=== PATIENT | female | born 1960 | race Caucasian/White ===

== ENCOUNTER 2023-05-27 21:13 | Inpatient (IN) | payer OTHER ==
[~2023-05-27] VITALS: Ht 157.5 cm; Wt 84.3 kg
[~2023-05-27 21:13] MED LIST: ATOR40TA PO; Aspir 8181 MG PO; CIPR500 PO; FURO20 PO; JARDIANCE25 MG PO; METF500 PO; METO25 PO; METR500 PO; ONDA4 PO; Percocet 5-3251 EACH PO; WARF5 PO
[2023-05-27] MEDS ORDERED: HUMULIN 70100 UNIT/4 (21:51)
[2023-05-27 21:52] LABS: BASOPHILS ABSOLUTE AUTO 0.04 K/mm3 (0.00-0.23); BASOPHILS PERCENT AUTO 0 % (0-2); EOSINOPHILS ABSOLUTE AUTO 0.31 K/mm3 (0.00-0.68); EOSINOPHILS PERCENT AUTO 3 % (0-6); Hematocrit 33.2 % (33.0-51.0); Hemoglobin 10.2 g/dL (11.5-16.0); IMMATURE GRAN ABSOLUTE AUTO 0.03 K/mm3 (0.00-0.10); IMMATURE GRAN PERCENT AUTO 0 % (0-1); LYMPHOCYTES ABSOLUTE AUTO 1.65 K/mm3 (0.84-5.20); LYMPHOCYTES PERCENT AUTO 17 % (21-46); MONOCYTES ABSOLUTE AUTO 0.63 K/mm3 (0.16-1.47); MONOCYTES PERCENT AUTO 6 % (4-13); Mean Corpuscular HGB 25.8 pg (26.0-34.0); Mean Corpuscular HGB Conc 30.7 g/dL (31.5-36.5); Mean Corpuscular Volume 84 fL (80-100); Mean Platelet Volume 8.9 fL (9.1-12.4); NEUTROPHILS ABSOLUTE AUTO 7.31 K/mm3 (1.96-9.15); NEUTROPHILS PERCENT AUTO 73 % (41-73); Platelet Count 302 K/mm3 (150-400); RDW Coefficient Variation 16.5 % (11.7-14.2); RDW Standard Deviation 50.4 fL (35.1-46.3); Red Blood Cell Count 3.96 M/mm3 (3.80-5.20); White Blood Cell Count 9.97 K/mm3 (4.00-11.30)
[2023-05-27 23:00] LABS: Albumin/Globulin Ratio 0.7 (0.8-1.8); Bilirubin, Total 0.3 mg/dL (0.1-1.0); Calcium, Blood 8.9 mg/dL (8.5-10.1); Creatinine, Blood 0.65 mg/dL (0.40-1.00); Globulin, Blood 4.1 g/dL (2.2-4.0); Potassium, Blood 2.6 mmol/L (3.5-5.5); Total Protein, Blood 7.1 g/dL (6.4-8.2)
[2023-05-28] VITALS (17 sets, daily range): BP systolic 100–130; BP diastolic 46–79
[2023-05-28 03:53] LABS: BASOPHILS ABSOLUTE AUTO 0.02 K/mm3 (0.00-0.23); BASOPHILS PERCENT AUTO 0 % (0-2); EOSINOPHILS ABSOLUTE AUTO 0.44 K/mm3 (0.00-0.68); EOSINOPHILS PERCENT AUTO 4 % (0-6); Hematocrit 29.6 % (33.0-51.0); Hemoglobin 9.2 g/dL (11.5-16.0); IMMATURE GRAN ABSOLUTE AUTO 0.02 K/mm3 (0.00-0.10); IMMATURE GRAN PERCENT AUTO 0 % (0-1); LYMPHOCYTES ABSOLUTE AUTO 1.69 K/mm3 (0.84-5.20); LYMPHOCYTES PERCENT AUTO 16 % (21-46); MONOCYTES ABSOLUTE AUTO 0.54 K/mm3 (0.16-1.47); MONOCYTES PERCENT AUTO 5 % (4-13); Mean Corpuscular HGB 25.6 pg (26.0-34.0); Mean Corpuscular HGB Conc 31.1 g/dL (31.5-36.5); Mean Corpuscular Volume 83 fL (80-100); Mean Platelet Volume 9.3 fL (9.1-12.4); NEUTROPHILS ABSOLUTE AUTO 7.63 K/mm3 (1.96-9.15); NEUTROPHILS PERCENT AUTO 74 % (41-73); Platelet Count 258 K/mm3 (150-400); RDW Coefficient Variation 16.5 % (11.7-14.2); RDW Standard Deviation 49.5 fL (35.1-46.3); Red Blood Cell Count 3.59 M/mm3 (3.80-5.20); White Blood Cell Count 10.34 K/mm3 (4.00-11.30)
[2023-05-28 04:19] LABS: Prothrombin Time Results 39.2 Sec (9.7-11.5)
[2023-05-28 04:27] LABS: Albumin, Blood 2.6 g/dL (3.4-5.0); Albumin/Globulin Ratio 0.7 (0.8-1.8); Bilirubin, Total 0.4 mg/dL (0.1-1.0); Calcium, Blood 8.1 mg/dL (8.5-10.1); Creatinine, Blood 0.52 mg/dL (0.40-1.00); Globulin, Blood 3.6 g/dL (2.2-4.0); Potassium, Blood 3.7 mmol/L (3.5-5.5); Total Protein, Blood 6.2 g/dL (6.4-8.2)
[2023-05-28 04:38] LABS: International Normalized Ratio 4.04
--- NOTE | 2023-05-28 05:24 | NUR ---
SHIFT SUMMARY: Pt arrived to ICU from ER at 0218. Alert and oriented, pleasant and cooperative. She was able to transfer herself to her new bed. D10 running at 200ml/hr and KCL running. CBG 189. Vitals stable, pt in no acute distress. New bag of D10 hung and rate changed to 150ml/hr to reflect order. Blood glucose checks q30min, all have been greater than 100. Pt requested to have a CPAP for sleep which she uses at home, CPAP set up by RT. Critical INR of 4.[address] Wyatt, no new orders received. Pt has an ostomy bag and abdominal dressing that will need to be changed, but she declines at this time as she has not slept all night and wants to rest.
--- NOTE | 2023-05-28 11:54 | NUR ---
SHIFT ASSESSMENT ASSUMED CARE OF PT @ 0700, BEDSIDE REPORT RECEIVED. PT ALERT AND ORIENTED TO BASELINE, SOARES, FOLLOWING COMMANDS. AMBULATES TO BSC, INDEPENDENT OTHER THAN MONITORING CORDS. D10 INFUSING @ 150/HR INITIALLY WITH Q30MIN CBG'S. GLUCOSE STABILIZED, FLUIDS NOW @ 75/HR c Q2HR CBG'S. PT HAS EXTENSIVE GI HISTORY, SOME NOTES RECEIVED FROM THE [facility] REGARDING COLOSTOMY. PT IS A POOR HISTORIAN, BASELINE DEVELOPMENTAL DELAY. AWAITING FAMILY TO ARRIVE TO DISCUSS WOUND CARE SECONDARY TO COLOSTOMY PLACEMENT. WILL CONSULT WITH WOUND CARE CLINIC FOR RECOMMENDATIONS.
--- NOTE | 2023-05-28 15:57 | NUR ---
UPDATE WOUND DRESSING CHANGED. PICTURES IN CHART. PTS FAMILY REPORTS DRESSING IS CHANGED WITH HYDROFERA BLUE, ABSORBENT PAD AND TAPE. WOUND AREA CLEANSED WITH SKIN RETAIL SEASONAL SPECIALIST, ALLOWED TO DRY, AND SMALL PIECE OF CALCIUM ALGINATE APPLIED WITH ABD PAD AND TAPE. AWAITING WOUND CONSULT FOR FURTHER INSTRUCTION.
--- NOTE | 2023-05-28 18:30 | NUR ---
SHIFT SUMMARY PT REMAINS A&O TO BASELINE. STATES SHE FEELS MUCH BETTER, NO LONGER C/O ABD DISCOMFORT. TOLERATING PO INTAKE WELL. AMBULATES WITHOUT ASSISTANCE TO BSC. D10 OFF SINCE 1500. PLAN ON CHECKING CBG'S Q1HR X 3 CHECKS, STARTING @ 1835. GLUCOSE HAS BEEN STABLE SINCE STOPPING D10. NEW OSTOMY BAG PLACED ON THIS AFTERNOON DURING WOUND DRESSING CHANGE. OTHERWISE, NO OTHER SIGNIFICANT CHANGES.
[2023-05-29 03:27] LABS: BASOPHILS ABSOLUTE AUTO 0.05 K/mm3 (0.00-0.23); BASOPHILS PERCENT AUTO 1 % (0-2); EOSINOPHILS ABSOLUTE AUTO 0.51 K/mm3 (0.00-0.68); EOSINOPHILS PERCENT AUTO 7 % (0-6); Hematocrit 31.5 % (33.0-51.0); IMMATURE GRAN ABSOLUTE AUTO 0.01 K/mm3 (0.00-0.10); IMMATURE GRAN PERCENT AUTO 0 % (0-1); LYMPHOCYTES PERCENT AUTO 28 % (21-46); MONOCYTES ABSOLUTE AUTO 0.47 K/mm3 (0.16-1.47); MONOCYTES PERCENT AUTO 7 % (4-13); Mean Corpuscular HGB 26.2 pg (26.0-34.0); Mean Corpuscular HGB Conc 31.7 g/dL (31.5-36.5); Mean Corpuscular Volume 83 fL (80-100); Mean Platelet Volume 9.4 fL (9.1-12.4); NEUTROPHILS ABSOLUTE AUTO 4.04 K/mm3 (1.96-9.15); NEUTROPHILS PERCENT AUTO 57 % (41-73); Platelet Count 264 K/mm3 (150-400); RDW Coefficient Variation 16.7 % (11.7-14.2); Red Blood Cell Count 3.81 M/mm3 (3.80-5.20); White Blood Cell Count 7.08 K/mm3 (4.00-11.30)
[2023-05-29 03:40] LABS: International Normalized Ratio 2.16; Prothrombin Time Results 21.7 Sec (9.7-11.5)
[2023-05-29 03:44] LABS: Bun/Creatinine Ratio 19.2 (12.0-20.0); Calcium, Blood 8.2 mg/dL (8.5-10.1); Creatinine, Blood 0.68 mg/dL (0.40-1.00); Potassium, Blood 4.4 mmol/L (3.5-5.5)
[2023-05-29 03:46] VITALS: BP 114/57
--- NOTE | 2023-05-29 06:18 | NUR ---
SHIFT SUMMERY PT IS ALERT AND ORIENTED X 3,PLEASENT W/HISTORY OF DEVELOPMENTAL DELAY. SHE IS AMBULATORY W/MIN ASSIST IN ROOM. HER BLOOD SUGARS HAVE BEEN STABLE THROUGHOUT THE NIGHT, D10 WAS STOPPED YESTERDAY AT 1500 PER REPORT. VS WNL, NO COMPLAINTS OF PAIN OR DISCOMFORT. SHE HAS BEEN AFEBRILE.
[2023-05-29 08:00] VITALS: BP 124/61
--- NOTE | 2023-05-29 08:09 | NUR ---
AM NOTE... ASSUMED CARE OF PT AT 0700. PT IS A&Ox4. VS STABLE. SHE IS IN SR ON RA WITH O2 SATS >95%. L/S CLEAR T/O. BT PRESENT AND NORMOACTIVE, PT DENIES ANY ABD PAIN AT THIS TIME. SHE IS UP IN THE CHAIR WALKING AROUND THE ROOM. CALL LIGHT IN REACH WILL CONTINUE TO MONITOR.
[2023-05-29] MEDS ORDERED: VISBIOME 112.51 EACH PO (10:07)
--- NOTE | 2023-05-29 12:33 | NUR ---
PT D/C HOME... PT D/C'd HOME WITH HER BROTHER PALLAVI. DISCHARGE EDUCATION AND INSTRUCTION PROVIDED VERBALLY BY RIGOBERTO MACKEY RN. BOTH IVs REMOVED WNL. ALL OF THE PT'S BELONGINGS WERE PACKED AND SENT WITH THE PT.
== END 2023-05-29 12:33 | disposition home or self-care (01) | DRG 637 ==
LOC: ER 21:13 → ICUE 21:14
PROVIDERS: Family Medicine; Student in an Organized Health Care Education/Training Program; ADMIT Internal Medicine
DX: E11.649 Type 2 diabetes mellitus with hypoglycemia without coma (principal); G92.8 Other toxic encephalopathy; E78.5 Hyperlipidemia, unspecified; I10 Essential (primary) hypertension; G47.33 Obstructive sleep apnea (adult) (pediatric); R06.82 Tachypnea, not elsewhere classified; E87.6 Hypokalemia; Z66 Do not resuscitate; R77.1 Abnormality of globulin; T38.3X5A Adverse effect of insulin and oral hypoglycemic [antidiabetic] drugs, initial encounter; L08.9 Local infection of the skin and subcutaneous tissue, unspecified; R62.50 Unspecified lack of expected normal physiological development in childhood; I25.10 Atherosclerotic heart disease of native coronary artery without angina pectoris; Z95.4 Presence of other heart-valve replacement; Z95.2 Presence of prosthetic heart valve; Z88.1 Allergy status to other antibiotic agents; Z79.01 Long term (current) use of anticoagulants; Z79.82 Long term (current) use of aspirin; Z79.899 Other long term (current) drug therapy; Z79.4 Long term (current) use of insulin; Z79.2 Long term (current) use of antibiotics; Z79.891 Long term (current) use of opiate analgesic; Z99.89 Dependence on other enabling machines and devices; Z90.710 Acquired absence of both cervix and uterus; Z98.890 Other specified postprocedural states; Z93.3 Colostomy status
CPT/HCPCS: 36415; 80048; 80053; 82947; 85025; 85610; 93005; 93010; 94660; 94762; 96365; 96366; 96367; 96375; 96376; 99285-25; A9270; G0378; J1610; J3480

== ENCOUNTER 2023-06-13 01:41 | Day surgery (SDC) | payer MEDICARE, OTHER ==
[~2023-06-13 01:41] MED LIST changes: +HUMULIN 70100 UNIT/4; +VISBIOME 112.51 EACH PO
== END 2023-06-13 23:34 | disposition home or self-care (01) ==
LOC: WOUND 01:41
DX: T81.30XA Disruption of wound, unspecified, initial encounter (principal); K94.09 Other complications of colostomy; E11.8 Type 2 diabetes mellitus with unspecified complications; I11.0 Hypertensive heart disease with heart failure; I50.9 Heart failure, unspecified; G47.33 Obstructive sleep apnea (adult) (pediatric); Z88.8 Allergy status to other drugs, medicaments and biological substances
CPT/HCPCS: A9270; G0463

== ENCOUNTER 2023-06-17 01:56 | Day surgery (SDC) | payer MEDICARE, OTHER | END 2023-06-17 22:38 | disposition home or self-care (01) | LOC: WOUND 01:56 | DX: S31.109A Unspecified open wound of abdominal wall, unspecified quadrant without penetration into peritoneal cavity, initial encounter (principal); E11.8 Type 2 diabetes mellitus with unspecified complications; K94.09 Other complications of colostomy | CPT/HCPCS: G0463 ==

== ENCOUNTER 2023-06-19 02:30 | Day surgery (SDC) | payer MEDICARE, OTHER | END 2023-06-19 23:04 | disposition home or self-care (01) | LOC: WOUND 02:30 | DX: T81.30XA Disruption of wound, unspecified, initial encounter (principal); S31.109D Unspecified open wound of abdominal wall, unspecified quadrant without penetration into peritoneal cavity, subsequent encounter; K94.09 Other complications of colostomy; E11.9 Type 2 diabetes mellitus without complications; I50.9 Heart failure, unspecified; I11.0 Hypertensive heart disease with heart failure; Z09 Encounter for follow-up examination after completed treatment for conditions other than malignant neoplasm; Z95.2 Presence of prosthetic heart valve | CPT/HCPCS: 36415; 85610; G0463 ==

== ENCOUNTER 2023-06-21 00:58 | Day surgery (SDC) | payer MEDICARE, OTHER | END 2023-06-21 22:52 | disposition home or self-care (01) | LOC: WOUND 00:58 | DX: T81.30XD Disruption of wound, unspecified, subsequent encounter (principal); S31.109D Unspecified open wound of abdominal wall, unspecified quadrant without penetration into peritoneal cavity, subsequent encounter; K94.09 Other complications of colostomy; E11.8 Type 2 diabetes mellitus with unspecified complications; I50.9 Heart failure, unspecified; I10 Essential (primary) hypertension | CPT/HCPCS: G0463 ==

== ENCOUNTER 2023-06-24 01:58 | Day surgery (SDC) | payer MEDICARE, OTHER | END 2023-06-24 22:54 | disposition home or self-care (01) | LOC: WOUND 01:58 | DX: T81.30XA Disruption of wound, unspecified, initial encounter (principal); S31.109D Unspecified open wound of abdominal wall, unspecified quadrant without penetration into peritoneal cavity, subsequent encounter; K94.09 Other complications of colostomy; E11.9 Type 2 diabetes mellitus without complications; I50.9 Heart failure, unspecified; I11.0 Hypertensive heart disease with heart failure | CPT/HCPCS: G0463 ==

== ENCOUNTER 2023-06-28 02:27 | Day surgery (SDC) | payer MEDICARE, OTHER | END 2023-06-28 22:57 | disposition home or self-care (01) | LOC: WOUND 02:27 | DX: T81.30XD Disruption of wound, unspecified, subsequent encounter (principal); S31.109D Unspecified open wound of abdominal wall, unspecified quadrant without penetration into peritoneal cavity, subsequent encounter; K94.09 Other complications of colostomy; E11.8 Type 2 diabetes mellitus with unspecified complications; I11.0 Hypertensive heart disease with heart failure; I50.9 Heart failure, unspecified | CPT/HCPCS: G0463 ==

== ENCOUNTER 2023-07-01 08:00 | Day surgery (SDC) | payer MEDICARE, OTHER | END 2023-07-01 23:59 | disposition home or self-care (01) | LOC: WOUND 08:00 | DX: S31.109D Unspecified open wound of abdominal wall, unspecified quadrant without penetration into peritoneal cavity, subsequent encounter (principal); X58.XXXD Exposure to other specified factors, subsequent encounter | CPT/HCPCS: 36415; 85610; G0463 ==

== ENCOUNTER 2023-07-03 03:01 | Day surgery (SDC) | payer MEDICARE, OTHER | END 2023-07-03 22:51 | disposition home or self-care (01) | LOC: WOUND 03:01 | DX: T81.30XA Disruption of wound, unspecified, initial encounter (principal); S31.109D Unspecified open wound of abdominal wall, unspecified quadrant without penetration into peritoneal cavity, subsequent encounter; K94.09 Other complications of colostomy; E11.8 Type 2 diabetes mellitus with unspecified complications; I50.9 Heart failure, unspecified; I11.0 Hypertensive heart disease with heart failure | CPT/HCPCS: A9270; G0463 ==

== ENCOUNTER 2023-07-08 01:30 | Day surgery (SDC) | payer MEDICARE, OTHER | END 2023-07-08 22:53 | disposition home or self-care (01) | LOC: WOUND 01:30 | DX: S31.109D Unspecified open wound of abdominal wall, unspecified quadrant without penetration into peritoneal cavity, subsequent encounter (principal); X58.XXXD Exposure to other specified factors, subsequent encounter; T81.30XA Disruption of wound, unspecified, initial encounter; K94.09 Other complications of colostomy; E11.8 Type 2 diabetes mellitus with unspecified complications; I11.0 Hypertensive heart disease with heart failure; I50.9 Heart failure, unspecified | CPT/HCPCS: G0463 ==

== ENCOUNTER 2023-07-10 01:21 | Day surgery (SDC) | payer MEDICARE, OTHER | END 2023-07-10 22:46 | disposition home or self-care (01) | LOC: WOUND 01:21 | DX: T81.30XA Disruption of wound, unspecified, initial encounter (principal); K94.09 Other complications of colostomy; E11.8 Type 2 diabetes mellitus with unspecified complications; I11.0 Hypertensive heart disease with heart failure; I50.9 Heart failure, unspecified; Y83.8 Other surgical procedures as the cause of abnormal reaction of the patient, or of later complication, without mention of misadventure at the time of the procedure; Z09 Encounter for follow-up examination after completed treatment for conditions other than malignant neoplasm; Z95.2 Presence of prosthetic heart valve | CPT/HCPCS: 36415; 85610; G0463 ==

== ENCOUNTER 2023-07-17 02:10 | Day surgery (SDC) | payer MEDICARE, OTHER | END 2023-07-17 22:59 | disposition home or self-care (01) | LOC: WOUND 02:10 | DX: T81.30XA Disruption of wound, unspecified, initial encounter (principal); S31.109D Unspecified open wound of abdominal wall, unspecified quadrant without penetration into peritoneal cavity, subsequent encounter; K94.09 Other complications of colostomy; E11.8 Type 2 diabetes mellitus with unspecified complications; I11.0 Hypertensive heart disease with heart failure; I50.9 Heart failure, unspecified | CPT/HCPCS: G0463 ==

== ENCOUNTER 2023-07-19 14:29 | Emergency (ER) | payer MEDICARE, OTHER ==
[~2023-07-19] VITALS: Ht 152.4 cm; Wt 73.0 kg
[2023-07-19 16:09] LABS: BASOPHILS ABSOLUTE AUTO 0.03 K/mm3 (0.00-0.23); BASOPHILS PERCENT AUTO 0 % (0-2); EOSINOPHILS ABSOLUTE AUTO 0.14 K/mm3 (0.00-0.68); EOSINOPHILS PERCENT AUTO 2 % (0-6); Hemoglobin 12.8 g/dL (11.5-16.0); IMMATURE GRAN ABSOLUTE AUTO 0.01 K/mm3 (0.00-0.10); IMMATURE GRAN PERCENT AUTO 0 % (0-1); LYMPHOCYTES ABSOLUTE AUTO 1.68 K/mm3 (0.84-5.20); LYMPHOCYTES PERCENT AUTO 21 % (21-46); MONOCYTES ABSOLUTE AUTO 0.56 K/mm3 (0.16-1.47); MONOCYTES PERCENT AUTO 7 % (4-13); Mean Corpuscular HGB 26.3 pg (26.0-34.0); Mean Corpuscular HGB Conc 32.8 g/dL (31.5-36.5); Mean Corpuscular Volume 80 fL (80-100); Mean Platelet Volume 9.4 fL (9.1-12.4); NEUTROPHILS ABSOLUTE AUTO 5.49 K/mm3 (1.96-9.15); NEUTROPHILS PERCENT AUTO 69 % (41-73); Platelet Count 250 K/mm3 (150-400); RDW Coefficient Variation 16.3 % (11.7-14.2); RDW Standard Deviation 47.8 fL (35.1-46.3); Red Blood Cell Count 4.87 M/mm3 (3.80-5.20); White Blood Cell Count 7.91 K/mm3 (4.00-11.30)
[2023-07-19 16:32] LABS: Albumin, Blood 3.8 g/dL (3.4-5.0); Bilirubin, Total 1.2 mg/dL (0.1-1.0); Bun/Creatinine Ratio 32.9 (12.0-20.0); Calcium, Blood 9.2 mg/dL (8.5-10.1); Creatinine, Blood 0.88 mg/dL (0.40-1.00); Globulin, Blood 3.9 g/dL (2.2-4.0); Potassium, Blood 2.5 mmol/L (3.5-5.5); Total Protein, Blood 7.7 g/dL (6.4-8.2)
[2023-07-20] MEDS ORDERED: POTA20PAC PO (00:09)
[2023-07-20 00:20] VITALS: BP 116/64
== END 2023-07-20 00:20 | disposition home or self-care (01) ==
LOC: ER 14:29
PROVIDERS: Student in an Organized Health Care Education/Training Program
DX: E87.6 Hypokalemia (principal); E87.1 Hypo-osmolality and hyponatremia; R79.1 Abnormal coagulation profile; Z88.1 Allergy status to other antibiotic agents; Z79.899 Other long term (current) drug therapy; Z79.01 Long term (current) use of anticoagulants; Z79.82 Long term (current) use of aspirin; E11.9 Type 2 diabetes mellitus without complications; E78.5 Hyperlipidemia, unspecified; I10 Essential (primary) hypertension; G47.30 Sleep apnea, unspecified
CPT/HCPCS: 80053; 85025; 93005; 93010; 96365; 96366; 96375; 99284-25; A9270; J0780; J1200; J3480; J7030

== ENCOUNTER 2023-07-22 14:41 | Emergency (ER) | payer MEDICARE, OTHER ==
[~2023-07-22] VITALS: Ht 152.4 cm; Wt 74.8 kg
[~2023-07-22 14:41] MED LIST changes: +POTA20PAC PO
[2023-07-22 15:16] VITALS: BP 127/74
[2023-07-22 15:41] LABS: BASOPHILS ABSOLUTE AUTO 0.03 K/mm3 (0.00-0.23); BASOPHILS PERCENT AUTO 0 % (0-2); EOSINOPHILS ABSOLUTE AUTO 0.21 K/mm3 (0.00-0.68); EOSINOPHILS PERCENT AUTO 3 % (0-6); Hematocrit 39.7 % (33.0-51.0); Hemoglobin 13.1 g/dL (11.5-16.0); IMMATURE GRAN ABSOLUTE AUTO 0.02 K/mm3 (0.00-0.10); IMMATURE GRAN PERCENT AUTO 0 % (0-1); LYMPHOCYTES ABSOLUTE AUTO 1.49 K/mm3 (0.84-5.20); LYMPHOCYTES PERCENT AUTO 18 % (21-46); MONOCYTES ABSOLUTE AUTO 0.61 K/mm3 (0.16-1.47); MONOCYTES PERCENT AUTO 7 % (4-13); Mean Corpuscular HGB 26.4 pg (26.0-34.0); Mean Corpuscular Volume 80 fL (80-100); Mean Platelet Volume 9.6 fL (9.1-12.4); NEUTROPHILS ABSOLUTE AUTO 6.03 K/mm3 (1.96-9.15); NEUTROPHILS PERCENT AUTO 72 % (41-73); Platelet Count 258 K/mm3 (150-400); RDW Coefficient Variation 16.5 % (11.7-14.2); RDW Standard Deviation 47.8 fL (35.1-46.3); Red Blood Cell Count 4.97 M/mm3 (3.80-5.20); White Blood Cell Count 8.39 K/mm3 (4.00-11.30)
[2023-07-22 16:00] LABS: Alanine Aminotransfer (ALT/SGP 31 U/L (12-78); Albumin, Blood 3.8 g/dL (3.4-5.0); Alk Phos 63 U/L (50-136); Aspartate Aminotrans (AST/SGOT 33 U/L (12-37); Bilirubin, Total 0.7 mg/dL (0.1-1.0); Blood Urea Nitrogen 29 mg/dL (8-24); Bun/Creatinine Ratio 32.6 (12.0-20.0); Calcium, Blood 9.7 mg/dL (8.5-10.1); Chloride, Blood 83 mmol/L (98-108); Creatinine, Blood 0.89 mg/dL (0.40-1.00); Glomerular Filtration Rate 73 (60-); Glucose, Blood 274 mg/dL (70-99); Potassium, Blood 2.6 mmol/L (3.5-5.5); Sodium, Blood 133 mmol/L (136-145); Total Protein, Blood 7.8 g/dL (6.4-8.2)
[2023-07-22 16:01] LABS: Anion Gap Unable to Calculate mmol/L (6-16)
[2023-07-22 16:03] LABS: CO2, Blood >45 mmol/L (21-32)
[2023-07-22] MEDS ORDERED: METO5A PO (22:56)
== END 2023-07-22 23:27 | disposition home or self-care (01) ==
LOC: ER 14:41
PROVIDERS: Physician Assistant
DX: E87.6 Hypokalemia (principal); R11.2 Nausea with vomiting, unspecified; R19.5 Other fecal abnormalities; E11.9 Type 2 diabetes mellitus without complications; E78.5 Hyperlipidemia, unspecified; I10 Essential (primary) hypertension; Z93.3 Colostomy status; Z88.1 Allergy status to other antibiotic agents; Z79.899 Other long term (current) drug therapy; Z79.01 Long term (current) use of anticoagulants; Z79.82 Long term (current) use of aspirin
CPT/HCPCS: 74177; 80053; 85025; 93005; 93010; 96365-59; 96366; 96375; 99284-25; A9270; J2765; J3480; J7030; J7050; Q9967

== ENCOUNTER 2023-07-24 04:35 | Day surgery (SDC) | payer MEDICARE, OTHER ==
[~2023-07-24 04:35] MED LIST changes: +METO5A PO
== END 2023-07-24 22:51 | disposition home or self-care (01) ==
LOC: WOUND
DX: T81.30XA Disruption of wound, unspecified, initial encounter (principal); S31.109D Unspecified open wound of abdominal wall, unspecified quadrant without penetration into peritoneal cavity, subsequent encounter; X58.XXXD Exposure to other specified factors, subsequent encounter; K94.09 Other complications of colostomy; E11.8 Type 2 diabetes mellitus with unspecified complications; I11.0 Hypertensive heart disease with heart failure; I50.9 Heart failure, unspecified
CPT/HCPCS: G0463

== ENCOUNTER 2023-07-31 04:50 | Day surgery (SDC) | payer MEDICARE, OTHER | END 2023-07-31 22:45 | disposition home or self-care (01) | LOC: WOUND 04:50 | DX: T81.30XA Disruption of wound, unspecified, initial encounter (principal); S31.109D Unspecified open wound of abdominal wall, unspecified quadrant without penetration into peritoneal cavity, subsequent encounter; K94.09 Other complications of colostomy; E11.8 Type 2 diabetes mellitus with unspecified complications; I50.9 Heart failure, unspecified; I11.0 Hypertensive heart disease with heart failure | CPT/HCPCS: G0463 ==

== ENCOUNTER → 2023-08-09 | Outpatient (CLI) | payer MEDICARE, OTHER ==
[2023-08-09 19:25] LABS: International Normalized Ratio 2.24; Prothrombin Time Results 22.5 Sec (9.7-11.5)
== END ==
LOC: LAB 17:39 → LAB SHORT 17:39
PROVIDERS: Physician Assistant
DX: T81.31XD Disruption of external operation (surgical) wound, not elsewhere classified, subsequent encounter (principal); Z95.2 Presence of prosthetic heart valve
CPT/HCPCS: 85610

== ENCOUNTER 2023-08-14 02:05 | Day surgery (SDC) | payer MEDICARE, OTHER ==
[2023-10-07] MEDS ORDERED: METF500 PO (17:46)
[2023-10-07] MEDS ORDERED: BASAGLAR K100 UNIT/4 SC (17:47)
[2023-10-07] MEDS ORDERED: JARDIANCE10 MG PO (17:47)
[2023-10-15] MEDS ORDERED: JUVEN PACKET1 EAC3 PO (10:04)
[2023-10-15] MEDS ORDERED: Pepcid 20 mg Ta20 MG PO (10:05)
[2023-10-15] MEDS ORDERED: METO25 PO (10:06)
== END 2023-08-14 23:38 | disposition home or self-care (01) ==
LOC: WOUND 02:05
DX: T81.31XA Disruption of external operation (surgical) wound, not elsewhere classified, initial encounter (principal); K94.09 Other complications of colostomy; E11.9 Type 2 diabetes mellitus without complications; I11.0 Hypertensive heart disease with heart failure; I50.9 Heart failure, unspecified; Y83.8 Other surgical procedures as the cause of abnormal reaction of the patient, or of later complication, without mention of misadventure at the time of the procedure
CPT/HCPCS: A9270; G0463

== ENCOUNTER 2023-08-21 02:30 | Day surgery (SDC) | payer MEDICARE, OTHER | END 2023-08-21 23:14 | disposition home or self-care (01) | LOC: WOUND 02:30 | DX: T81.31XD Disruption of external operation (surgical) wound, not elsewhere classified, subsequent encounter (principal); K94.09 Other complications of colostomy; E11.9 Type 2 diabetes mellitus without complications; I11.0 Hypertensive heart disease with heart failure; I50.9 Heart failure, unspecified; Y83.8 Other surgical procedures as the cause of abnormal reaction of the patient, or of later complication, without mention of misadventure at the time of the procedure | CPT/HCPCS: G0463 ==

== ENCOUNTER 2023-08-28 05:04 | Day surgery (SDC) | payer MEDICARE, OTHER | END 2023-08-28 22:50 | disposition home or self-care (01) | LOC: WOUND 05:04 | DX: T81.30XA Disruption of wound, unspecified, initial encounter (principal); S31.109D Unspecified open wound of abdominal wall, unspecified quadrant without penetration into peritoneal cavity, subsequent encounter; K94.09 Other complications of colostomy; E11.8 Type 2 diabetes mellitus with unspecified complications; I50.9 Heart failure, unspecified; I11.0 Hypertensive heart disease with heart failure | CPT/HCPCS: G0463 ==

== ENCOUNTER 2023-09-04 02:32 | Day surgery (SDC) | payer MEDICARE, OTHER | END 2023-09-04 22:47 | disposition home or self-care (01) | LOC: WOUND 02:32 | DX: T81.31XD Disruption of external operation (surgical) wound, not elsewhere classified, subsequent encounter (principal); K94.09 Other complications of colostomy; I11.0 Hypertensive heart disease with heart failure; I50.9 Heart failure, unspecified; E11.8 Type 2 diabetes mellitus with unspecified complications; Y83.8 Other surgical procedures as the cause of abnormal reaction of the patient, or of later complication, without mention of misadventure at the time of the procedure | CPT/HCPCS: G0463 ==

== ENCOUNTER 2023-09-11 04:43 | Day surgery (SDC) | payer MEDICARE, OTHER | END 2023-09-11 23:13 | disposition home or self-care (01) | LOC: WOUND 04:43 | DX: T81.30XA Disruption of wound, unspecified, initial encounter (principal); S31.109D Unspecified open wound of abdominal wall, unspecified quadrant without penetration into peritoneal cavity, subsequent encounter; X58.XXXD Exposure to other specified factors, subsequent encounter; K94.09 Other complications of colostomy; I11.0 Hypertensive heart disease with heart failure; I50.9 Heart failure, unspecified; E11.9 Type 2 diabetes mellitus without complications | CPT/HCPCS: G0463 ==

== ENCOUNTER 2023-09-18 01:56 | Day surgery (SDC) | payer MEDICARE, OTHER | END 2023-09-18 22:49 | disposition home or self-care (01) | LOC: WOUND 01:56 | DX: T81.31XD Disruption of external operation (surgical) wound, not elsewhere classified, subsequent encounter (principal); K94.09 Other complications of colostomy; E11.9 Type 2 diabetes mellitus without complications; I11.0 Hypertensive heart disease with heart failure; I50.9 Heart failure, unspecified; Y83.8 Other surgical procedures as the cause of abnormal reaction of the patient, or of later complication, without mention of misadventure at the time of the procedure | CPT/HCPCS: G0463 ==

== ENCOUNTER 2023-09-25 06:10 | Day surgery (SDC) | payer MEDICARE, OTHER | END 2023-09-25 22:57 | disposition home or self-care (01) | LOC: WOUND 06:10 | DX: T81.30XA Disruption of wound, unspecified, initial encounter (principal); S31.109D Unspecified open wound of abdominal wall, unspecified quadrant without penetration into peritoneal cavity, subsequent encounter; E11.8 Type 2 diabetes mellitus with unspecified complications; I50.9 Heart failure, unspecified; I11.0 Hypertensive heart disease with heart failure | CPT/HCPCS: G0463 ==

== ENCOUNTER → 2023-09-30 | Outpatient (CLI) | payer MEDICARE, OTHER ==
[~2023-09-30] MED LIST changes: +BASAGLAR K100 UNIT/4 SC; +JARDIANCE10 MG PO
[2023-09-30 14:29] LABS: International Normalized Ratio 2.2; Prothrombin Time Results 22.1 Sec (9.7-11.5)
== END ==
LOC: LAB 11:00 → LAB SHORT 11:00
PROVIDERS: Physician Assistant
DX: Z51.81 Encounter for therapeutic drug level monitoring (principal); I11.0 Hypertensive heart disease with heart failure; Z79.01 Long term (current) use of anticoagulants; I50.9 Heart failure, unspecified
CPT/HCPCS: 85610

== ENCOUNTER 2023-10-02 02:26 | Day surgery (SDC) | payer MEDICARE, OTHER ==
[~2023-10-02 02:26] MED LIST changes: -BASAGLAR K100 UNIT/4 SC; -JARDIANCE10 MG PO
[2023-10-07] MEDS ORDERED: METF500 PO (17:46)
[2023-10-07] MEDS ORDERED: BASAGLAR K100 UNIT/4 SC (17:47)
[2023-10-07] MEDS ORDERED: JARDIANCE10 MG PO (17:47)
== END 2023-10-02 22:42 | disposition home or self-care (01) ==
LOC: WOUND 02:26
DX: T81.31XD Disruption of external operation (surgical) wound, not elsewhere classified, subsequent encounter (principal); K94.09 Other complications of colostomy; E11.9 Type 2 diabetes mellitus without complications; I11.0 Hypertensive heart disease with heart failure; I50.9 Heart failure, unspecified; Y83.8 Other surgical procedures as the cause of abnormal reaction of the patient, or of later complication, without mention of misadventure at the time of the procedure
CPT/HCPCS: G0463

== ENCOUNTER 2023-10-16 02:12 | Day surgery (SDC) | payer MEDICARE, OTHER ==
[~2023-10-16 02:12] MED LIST changes: +BASAGLAR K100 UNIT/4 SC; +JARDIANCE10 MG PO; +JUVEN PACKET1 EAC3 PO; +Pepcid 20 mg Ta20 MG PO
== END 2023-10-16 22:44 | disposition home or self-care (01) ==
LOC: WOUND 02:12
DX: T81.31XD Disruption of external operation (surgical) wound, not elsewhere classified, subsequent encounter (principal); K94.09 Other complications of colostomy; E11.9 Type 2 diabetes mellitus without complications; I11.0 Hypertensive heart disease with heart failure; I50.9 Heart failure, unspecified; Y83.8 Other surgical procedures as the cause of abnormal reaction of the patient, or of later complication, without mention of misadventure at the time of the procedure
CPT/HCPCS: G0463

== ENCOUNTER 2023-10-16 19:42 | Emergency (ER) | payer MEDICARE, OTHER ==
[~2023-10-16] VITALS: Ht 152.4 cm; Wt 70.8 kg
[2023-10-16 21:09] LABS: Source, Urine Clean Catch
[2023-10-16 21:12] LABS: BASOPHILS ABSOLUTE AUTO 0.03 K/mm3 (0.00-0.23); BASOPHILS PERCENT AUTO 0 % (0-2); EOSINOPHILS ABSOLUTE AUTO 0.18 K/mm3 (0.00-0.68); EOSINOPHILS PERCENT AUTO 3 % (0-6); Hematocrit 35.4 % (33.0-51.0); Hemoglobin 11.4 g/dL (11.5-16.0); IMMATURE GRAN ABSOLUTE AUTO 0.05 K/mm3 (0.00-0.10); IMMATURE GRAN PERCENT AUTO 1 % (0-1); LYMPHOCYTES ABSOLUTE AUTO 2.42 K/mm3 (0.84-5.20); LYMPHOCYTES PERCENT AUTO 34 % (21-46); MONOCYTES ABSOLUTE AUTO 0.43 K/mm3 (0.16-1.47); MONOCYTES PERCENT AUTO 6 % (4-13); Mean Corpuscular HGB Conc 32.2 g/dL (31.5-36.5); Mean Corpuscular Volume 84 fL (80-100); Mean Platelet Volume 9.7 fL (9.1-12.4); NEUTROPHILS ABSOLUTE AUTO 4.04 K/mm3 (1.96-9.15); NEUTROPHILS PERCENT AUTO 57 % (41-73); Platelet Count 324 K/mm3 (150-400); RDW Coefficient Variation 15.1 % (11.7-14.2); RDW Standard Deviation 45.7 fL (35.1-46.3); Red Blood Cell Count 4.23 M/mm3 (3.80-5.20); White Blood Cell Count 7.15 K/mm3 (4.00-11.30)
[2023-10-16 21:13] LABS: Appearance, Urine Clear (Clear); Bilirubin, Urine Neg (Neg); Blood, Urine Neg (Neg); Color, Urine Yellow (P-Yellow); Glucose Qualitative, Urine 4+ (Neg); Ketones, Urine Neg (Neg); Leukocyte Esterase, Urine Neg (Neg); Nitrite, Urine Neg (Neg); Protein, Urine Neg (Neg); Urobilinogen, Urine NORM (Normal)
[2023-10-16 21:31] LABS: Albumin, Blood 2.7 g/dL (3.4-5.0); Albumin/Globulin Ratio 0.6 (0.8-1.8); Bilirubin, Total 0.2 mg/dL (0.1-1.0); Bun/Creatinine Ratio 39.9 (12.0-20.0); Calcium, Blood 8.9 mg/dL (8.5-10.1); Creatinine, Blood 0.6 mg/dL (0.40-1.00); Globulin, Blood 4.6 g/dL (2.2-4.0); Potassium, Blood 3.6 mmol/L (3.5-5.5); Total Protein, Blood 7.3 g/dL (6.4-8.2)
[2023-10-16 22:15] VITALS: BP 109/51
== END 2023-10-17 00:11 | disposition home or self-care (01) ==
LOC: ER 19:42
PROVIDERS: Physician Assistant
DX: R41.0 Disorientation, unspecified (principal); I10 Essential (primary) hypertension; E11.9 Type 2 diabetes mellitus without complications; E78.00 Pure hypercholesterolemia, unspecified; Z85.42 Personal history of malignant neoplasm of other parts of uterus; Z79.4 Long term (current) use of insulin; Z79.84 Long term (current) use of oral hypoglycemic drugs; Z79.82 Long term (current) use of aspirin; Z79.01 Long term (current) use of anticoagulants; Z79.899 Other long term (current) drug therapy; Z88.1 Allergy status to other antibiotic agents; Z91.81 History of falling
CPT/HCPCS: 80053; 81003; 82947; 85025; 93005; 93010; 99285-25

== ENCOUNTER 2023-10-23 03:20 | Day surgery (SDC) | payer MEDICARE, OTHER | END 2023-10-23 22:50 | disposition home or self-care (01) | LOC: WOUND 03:20 | DX: L89.152 Pressure ulcer of sacral region, stage 2 (principal); T81.31XD Disruption of external operation (surgical) wound, not elsewhere classified, subsequent encounter; E11.9 Type 2 diabetes mellitus without complications; I11.0 Hypertensive heart disease with heart failure; K94.09 Other complications of colostomy; Y83.8 Other surgical procedures as the cause of abnormal reaction of the patient, or of later complication, without mention of misadventure at the time of the procedure | CPT/HCPCS: G0463 ==

== ENCOUNTER 2023-10-30 01:17 | Day surgery (SDC) | payer MEDICARE, OTHER | END 2023-10-30 22:45 | disposition home or self-care (01) | LOC: WOUND 01:17 | DX: T81.31XD Disruption of external operation (surgical) wound, not elsewhere classified, subsequent encounter (principal); L89.152 Pressure ulcer of sacral region, stage 2; L89.302 Pressure ulcer of unspecified buttock, stage 2; S31.109D Unspecified open wound of abdominal wall, unspecified quadrant without penetration into peritoneal cavity, subsequent encounter; K94.09 Other complications of colostomy; E11.9 Type 2 diabetes mellitus without complications; I11.0 Hypertensive heart disease with heart failure; I50.9 Heart failure, unspecified; Y83.8 Other surgical procedures as the cause of abnormal reaction of the patient, or of later complication, without mention of misadventure at the time of the procedure; X58.XXXD Exposure to other specified factors, subsequent encounter | CPT/HCPCS: G0463 ==

== ENCOUNTER 2023-11-13 02:56 | Day surgery (SDC) | payer MEDICARE, OTHER | END 2023-11-13 22:42 | disposition home or self-care (01) | LOC: WOUND 02:56 | DX: T81.31XD Disruption of external operation (surgical) wound, not elsewhere classified, subsequent encounter (principal); L89.152 Pressure ulcer of sacral region, stage 2; K94.09 Other complications of colostomy; E11.9 Type 2 diabetes mellitus without complications; I11.0 Hypertensive heart disease with heart failure; I50.9 Heart failure, unspecified | CPT/HCPCS: G0463 ==

== ENCOUNTER 2023-11-20 01:36 | Day surgery (SDC) | payer MEDICARE, OTHER | END 2023-11-20 22:53 | disposition home or self-care (01) | LOC: WOUND 01:36 | DX: L02.214 Cutaneous abscess of groin (principal); I11.0 Hypertensive heart disease with heart failure; I50.9 Heart failure, unspecified; E11.9 Type 2 diabetes mellitus without complications | CPT/HCPCS: A9270 ==

== ENCOUNTER 2023-11-27 02:50 | Day surgery (SDC) | payer MEDICARE, OTHER | END 2023-11-27 23:18 | disposition home or self-care (01) | LOC: WOUND 02:50 | DX: L02.214 Cutaneous abscess of groin (principal); S31.109D Unspecified open wound of abdominal wall, unspecified quadrant without penetration into peritoneal cavity, subsequent encounter; T81.30XA Disruption of wound, unspecified, initial encounter; L89.302 Pressure ulcer of unspecified buttock, stage 2; K94.09 Other complications of colostomy; E11.8 Type 2 diabetes mellitus with unspecified complications; I11.0 Hypertensive heart disease with heart failure; I50.9 Heart failure, unspecified; E87.6 Hypokalemia; Z48.812 Encounter for surgical aftercare following surgery on the circulatory system; Z95.2 Presence of prosthetic heart valve | CPT/HCPCS: 36415; 80048; 85610; G0463 ==

== ENCOUNTER 2023-12-04 02:51 | Day surgery (SDC) | payer MEDICARE, OTHER | END 2023-12-04 22:59 | disposition home or self-care (01) | LOC: WOUND 02:51 | DX: L02.214 Cutaneous abscess of groin (principal); T81.30XA Disruption of wound, unspecified, initial encounter; S31.109D Unspecified open wound of abdominal wall, unspecified quadrant without penetration into peritoneal cavity, subsequent encounter; L89.302 Pressure ulcer of unspecified buttock, stage 2; K94.09 Other complications of colostomy; E11.9 Type 2 diabetes mellitus without complications; I11.0 Hypertensive heart disease with heart failure; I50.9 Heart failure, unspecified; Z95.2 Presence of prosthetic heart valve; Y83.8 Other surgical procedures as the cause of abnormal reaction of the patient, or of later complication, without mention of misadventure at the time of the procedure; X58.XXXD Exposure to other specified factors, subsequent encounter | CPT/HCPCS: 36415; 85610; G0463 ==

== ENCOUNTER 2023-12-11 11:21 | Inpatient (IN) | payer MEDICARE, OTHER ==
[~2023-12-11] VITALS: Ht 152.4 cm; Wt 67.0 kg
[2023-12-11 12:46] LABS: BASOPHILS ABSOLUTE AUTO 0.05 K/mm3 (0.00-0.23); BASOPHILS PERCENT AUTO 1 % (0-2); EOSINOPHILS ABSOLUTE AUTO 0.33 K/mm3 (0.00-0.68); EOSINOPHILS PERCENT AUTO 3 % (0-6); Hematocrit 40.9 % (33.0-51.0); Hemoglobin 13.4 g/dL (11.5-16.0); IMMATURE GRAN ABSOLUTE AUTO 0.03 K/mm3 (0.00-0.10); IMMATURE GRAN PERCENT AUTO 0 % (0-1); LYMPHOCYTES ABSOLUTE AUTO 2.34 K/mm3 (0.84-5.20); LYMPHOCYTES PERCENT AUTO 22 % (21-46); MONOCYTES ABSOLUTE AUTO 0.87 K/mm3 (0.16-1.47); MONOCYTES PERCENT AUTO 8 % (4-13); Mean Corpuscular HGB 26.7 pg (26.0-34.0); Mean Corpuscular HGB Conc 32.8 g/dL (31.5-36.5); Mean Corpuscular Volume 82 fL (80-100); Mean Platelet Volume 8.9 fL (9.1-12.4); NEUTROPHILS PERCENT AUTO 66 % (41-73); Platelet Count 440 K/mm3 (150-400); RDW Coefficient Variation 16.7 % (11.7-14.2); RDW Standard Deviation 49.2 fL (35.1-46.3); Red Blood Cell Count 5.02 M/mm3 (3.80-5.20); White Blood Cell Count 10.62 K/mm3 (4.00-11.30)
[2023-12-11 13:05] LABS: Alanine Aminotransfer (ALT/SGP 21 U/L (12-78); Albumin/Globulin Ratio 0.7 (0.8-1.8); Alk Phos 55 U/L (50-136); Aspartate Aminotrans (AST/SGOT 44 U/L (12-37); Bilirubin, Total 0.7 mg/dL (0.1-1.0); Blood Urea Nitrogen 47 mg/dL (8-24); Bun/Creatinine Ratio 53.7 (12.0-20.0); Calcium, Blood 9.2 mg/dL (8.5-10.1); Chloride, Blood 74 mmol/L (98-108); Creatinine, Blood 0.88 mg/dL (0.40-1.00); Globulin, Blood 4.5 g/dL (2.2-4.0); Glomerular Filtration Rate 74 (60-); Glucose, Blood 281 mg/dL (70-99); Potassium, Blood 3.9 mmol/L (3.5-5.5); Sodium, Blood 123 mmol/L (136-145); Total Protein, Blood 7.5 g/dL (6.4-8.2)
[2023-12-11 13:06] LABS: Anion Gap Unable to Calculate mmol/L (6-16)
[2023-12-11 13:07] LABS: CO2, Blood >45 mmol/L (21-32)
[2023-12-11 17:56] VITALS: BP 106/80
--- NOTE | 2023-12-11 19:13 | NUR ---
PT TO ROOM THIS DAVE/ A/O X3, SLOW WITH SOME ANSWERS. DEV DELAY. VERY PLEASANT. H/R IRREG, NO MURMUR NOTED. TELE NSR AT 62. DENIES PAIN. NO EDEMA. LUNGS CLEAR, RESP EASY, UNLABORED. ON R.A. BT HPPOACTIVE. OSTOMY BAG LLQ. SOME STOOL NOTED. ABD MILDLY DISTENDED. DENIES PAIN. AMBULATES TO BATHROOM. INDEPENDANT.OLD SCAR MIDLINE CHEST, HEART SURG, OLD SCAR ABD, CDI. OSOMY BAG CDI, NO ORDERS IN COMPUTER, CALLED DR FLOWERS, HE TO REVIEW AND MAKE ORDERS. BED IN LOW POSITION, CALL LITE IN REACH, CALLS APPROP
[2023-12-11 19:15] LABS: Blood Urea Nitrogen 45 mg/dL (8-24); Bun/Creatinine Ratio 55.1 (12.0-20.0); Calcium, Blood 9.1 mg/dL (8.5-10.1); Chloride, Blood 76 mmol/L (98-108); Creatinine, Blood 0.82 mg/dL (0.40-1.00); Glomerular Filtration Rate 80 (60-); Glucose, Blood 135 mg/dL (70-99); Potassium, Blood 2.8 mmol/L (3.5-5.5); Sodium, Blood 128 mmol/L (136-145)
[2023-12-11 19:16] LABS: Anion Gap Unable to Calculate mmol/L (6-16); CO2, Blood >45 mmol/L (21-32)
--- NOTE | 2023-12-11 19:22 | NUR ---
LAB [facility] CALLED. CO2 >45, SAME WHEN IN ER. GAVE LAB TO RECEIVING RN. HE TO DISCUSS WITH
[2023-12-11 19:34] VITALS: BP 104/59
[2023-12-11 23:13] LABS: Calcium, Blood 8.5 mg/dL (8.5-10.1); Creatinine, Blood 1.05 mg/dL (0.40-1.00); Magnesium, Blood 2.3 mg/dL (1.6-2.4); Phosphorus, Blood 2.8 mg/dL (2.5-4.9); Potassium, Blood 3.3 mmol/L (3.5-5.5)
[2023-12-12 02:54] VITALS: BP 112/63
[2023-12-12 03:09] LABS: BASOPHILS ABSOLUTE AUTO 0.07 K/mm3 (0.00-0.23); BASOPHILS PERCENT AUTO 1 % (0-2); EOSINOPHILS PERCENT AUTO 6 % (0-6); Hematocrit 37.4 % (33.0-51.0); Hemoglobin 12.3 g/dL (11.5-16.0); IMMATURE GRAN ABSOLUTE AUTO 0.03 K/mm3 (0.00-0.10); IMMATURE GRAN PERCENT AUTO 0 % (0-1); LYMPHOCYTES ABSOLUTE AUTO 2.86 K/mm3 (0.84-5.20); LYMPHOCYTES PERCENT AUTO 29 % (21-46); MONOCYTES ABSOLUTE AUTO 0.73 K/mm3 (0.16-1.47); MONOCYTES PERCENT AUTO 7 % (4-13); Mean Corpuscular HGB 26.6 pg (26.0-34.0); Mean Corpuscular HGB Conc 32.9 g/dL (31.5-36.5); Mean Corpuscular Volume 81 fL (80-100); Mean Platelet Volume 8.7 fL (9.1-12.4); NEUTROPHILS ABSOLUTE AUTO 5.66 K/mm3 (1.96-9.15); NEUTROPHILS PERCENT AUTO 57 % (41-73); Platelet Count 418 K/mm3 (150-400); RDW Coefficient Variation 16.5 % (11.7-14.2); RDW Standard Deviation 47.7 fL (35.1-46.3); Red Blood Cell Count 4.62 M/mm3 (3.80-5.20); White Blood Cell Count 9.95 K/mm3 (4.00-11.30)
[2023-12-12 03:31] LABS: Albumin, Blood 2.9 g/dL (3.4-5.0); Albumin/Globulin Ratio 0.7 (0.8-1.8); Bilirubin, Total 0.6 mg/dL (0.1-1.0); Bun/Creatinine Ratio 37.8 (12.0-20.0); Calcium, Blood 8.3 mg/dL (8.5-10.1); Creatinine, Blood 0.98 mg/dL (0.40-1.00); Globulin, Blood 3.9 g/dL (2.2-4.0); Potassium, Blood 3.7 mmol/L (3.5-5.5); Prothrombin Time Results 42.6 Sec (9.7-11.5); Total Protein, Blood 6.8 g/dL (6.4-8.2)
[2023-12-12 03:42] LABS: International Normalized Ratio 4.41
--- NOTE | 2023-12-12 04:41 | NUR ---
SHIFT SUMMARY DARION WAS ALERT AND ORIENTED X 3-4 ON ASSESSMENT. PT DENIES SOB AND C/P/PRESSURE. PT DENIES PAIN, AND STATES THAT SHE "FEELS JUST FINE TODAY" DR. HOU CONTACTED AT START OF SHIFT ABOUT LAB RESULTS, HE ORDERED 60 MEQ IV POTASSIUM CHLORIDE, AND 40 MEQ PO POTASSIUM CHLORIDE. NO ACUTE EVENTS TONIGHT, NO NOTED CHANGES TO PT CONDITION. PT RESTING IN BED WITH CALL LIGHT IN REACH WHICH SHE USES APPROPRIATELY. HOSPITALIST NOTIFIED OF CRITICAL INR, NO CHANGES ORDERED.
[2023-12-12 07:55] VITALS: BP 92/52
[2023-12-12 11:57] VITALS: BP 111/68
[2023-12-12 14:57] LABS: Albumin, Blood 2.8 g/dL (3.4-5.0); Albumin/Globulin Ratio 0.7 (0.8-1.8); Bilirubin, Total 0.5 mg/dL (0.1-1.0); Bun/Creatinine Ratio 31.8 (12.0-20.0); Calcium, Blood 8.6 mg/dL (8.5-10.1); Creatinine, Blood 1.07 mg/dL (0.40-1.00); Globulin, Blood 4.1 g/dL (2.2-4.0); Potassium, Blood 3.6 mmol/L (3.5-5.5); Total Protein, Blood 6.9 g/dL (6.4-8.2)
[2023-12-12 15:26] VITALS: BP 112/68
--- NOTE | 2023-12-12 17:37 | NUR ---
SHIFT SUMMARY PT A&OX4, VSS, AMB IND, TOLERATING PO, VOIDING, AND DENIED PAIN. PT'S SODIUM CONT TO BE LOW AT 127 AND ORDERED NS TO INFUSE AT 100 MLS/HR. NS IS CURRENTLY INFUSING. NO OTHER ACUTE CHANGES THIS SHIFT. CALL LIGHT WITHIN REACH AND PT ABLE TO MAKE NEEDS KNOWN.
[2023-12-12 20:53] VITALS: BP 99/56
[2023-12-13 04:27] VITALS: BP 118/66
--- NOTE | 2023-12-13 05:18 | NUR ---
SHIFT SUMMARY MARIN WAS ALERT AND AT BASELINE ORIENTATION THIS SHIFT. PT AMBULATES INDEPENDENTLY, AND CALLS APPROPRIATELY. NO NEW COMPLAINTS THIS SHIFT, NO CHANGES TO PT CONDITION NOTED. OSTOMY PRODUCING PASTY BROWN STOOL, IV NS INFUSING AT 100ML/ HR. PT IS HOPEFUL ABOUT GOING HOME TODAY ON DAY SHIFT. PT RESTING IN BED AT A LOW POSITION WITH CALL LIGHT IN REACH.
[2023-12-13 06:05] LABS: BASOPHILS ABSOLUTE AUTO 0.09 K/mm3 (0.00-0.23); BASOPHILS PERCENT AUTO 1 % (0-2); EOSINOPHILS ABSOLUTE AUTO 0.59 K/mm3 (0.00-0.68); EOSINOPHILS PERCENT AUTO 7 % (0-6); IMMATURE GRAN ABSOLUTE AUTO 0.03 K/mm3 (0.00-0.10); IMMATURE GRAN PERCENT AUTO 0 % (0-1); LYMPHOCYTES ABSOLUTE AUTO 2.66 K/mm3 (0.84-5.20); LYMPHOCYTES PERCENT AUTO 32 % (21-46); MONOCYTES ABSOLUTE AUTO 0.79 K/mm3 (0.16-1.47); MONOCYTES PERCENT AUTO 10 % (4-13); Mean Corpuscular HGB 25.9 pg (26.0-34.0); Mean Corpuscular HGB Conc 31.6 g/dL (31.5-36.5); Mean Corpuscular Volume 82 fL (80-100); Mean Platelet Volume 8.9 fL (9.1-12.4); NEUTROPHILS ABSOLUTE AUTO 4.18 K/mm3 (1.96-9.15); NEUTROPHILS PERCENT AUTO 50 % (41-73); Platelet Count 355 K/mm3 (150-400); RDW Coefficient Variation 16.5 % (11.7-14.2); RDW Standard Deviation 48.8 fL (35.1-46.3); Red Blood Cell Count 4.63 M/mm3 (3.80-5.20); White Blood Cell Count 8.34 K/mm3 (4.00-11.30)
[2023-12-13 06:15] LABS: International Normalized Ratio 1.78; Prothrombin Time Results 18.1 Sec (9.7-11.5)
[2023-12-13 06:40] LABS: Albumin, Blood 2.9 g/dL (3.4-5.0); Albumin/Globulin Ratio 0.8 (0.8-1.8); Bilirubin, Total 0.5 mg/dL (0.1-1.0); Bun/Creatinine Ratio 36.8 (12.0-20.0); Calcium, Blood 8.5 mg/dL (8.5-10.1); Creatinine, Blood 0.79 mg/dL (0.40-1.00); Globulin, Blood 3.8 g/dL (2.2-4.0); Potassium, Blood 2.8 mmol/L (3.5-5.5); Total Protein, Blood 6.7 g/dL (6.4-8.2)
[2023-12-13 07:16] VITALS: BP 115/60
[2023-12-13 16:36] LABS: Bun/Creatinine Ratio 34.4 (12.0-20.0); Creatinine, Blood 0.7 mg/dL (0.40-1.00); Potassium, Blood 3.8 mmol/L (3.5-5.5)
--- NOTE | 2023-12-13 17:19 | NUR ---
SHIFT SUMMARY PT AOX3, IT APEARS A DEVELOPMENTAL DELAY IS PRESENT. SHE CALLS SOMETIMES, CALLS OUT OTHER TIMES. SHE TOLD THIS NURSE SHE IS "INCREDIBLY BORED" AND WANTS TO GO HOME. SHE HAS HAD NO C/O P,CP,N,V,D OR SOB. SHE HAS BEEN IN HER ROOM COLORING MOST OF THE SHIFT. HER [id number] WAS AT THE BS TODAY, BRINGING HER BELONGINGS FROM HOME. SHE IS PLEASANT AND COOPERATIVE, MAKES HER NEEDS KNOWN. CALL LIGHT WITHIN REACH, BED IN THE LOWEST POSITION. WILL REPORT TO ONCOMING NURSE.
[2023-12-13 20:30] VITALS: BP 105/67
--- NOTE | 2023-12-14 03:33 | NUR ---
SHIFT SUMMARY PT A&O WITH SLIGHT DEVELOPMENTAL DELAY. CONTINENT AND INDEPENDENT IN ROOM. PT HAS HISTORY OF GASTROPARESIS. COMPLAINED OF NAUSEA, GAVE SCHEDULED REGLAN. PT STATES EFFECTIVE IN TREATING NAUSEA. NS INFUISING AT 100 ML/HR. PT HAS COLOSTOMY TO LLQ WITH THICK BROWN PUDDY LIKE STOOL. PT USES BIPAP AT HS, CONTINUOUS O2 MONITORING IN PLACE. BED IN LOWEST POSITION WITH CALL LIGHT WITHIN REACH. BED ALARM ON FOR SAFETY. PT CALLS APPROPRIATELY FOR NEEDS.
--- NOTE | 2023-12-14 03:58 | NUR ---
BLOOD SUGAR RESULTS GLUCOSE RESULTS 122 AT 930 PM. DID NOT TRANSFER FROM MACHINE.
[2023-12-14 05:02] VITALS: BP 104/62
[2023-12-14 06:00] LABS: BASOPHILS ABSOLUTE AUTO 0.09 K/mm3 (0.00-0.23); BASOPHILS PERCENT AUTO 1 % (0-2); EOSINOPHILS ABSOLUTE AUTO 0.33 K/mm3 (0.00-0.68); EOSINOPHILS PERCENT AUTO 4 % (0-6); Hematocrit 37.3 % (33.0-51.0); IMMATURE GRAN ABSOLUTE AUTO 0.03 K/mm3 (0.00-0.10); IMMATURE GRAN PERCENT AUTO 0 % (0-1); LYMPHOCYTES ABSOLUTE AUTO 2.63 K/mm3 (0.84-5.20); LYMPHOCYTES PERCENT AUTO 32 % (21-46); MONOCYTES PERCENT AUTO 10 % (4-13); Mean Corpuscular HGB 26.3 pg (26.0-34.0); Mean Corpuscular HGB Conc 32.2 g/dL (31.5-36.5); Mean Corpuscular Volume 82 fL (80-100); Mean Platelet Volume 9.1 fL (9.1-12.4); NEUTROPHILS ABSOLUTE AUTO 4.27 K/mm3 (1.96-9.15); NEUTROPHILS PERCENT AUTO 52 % (41-73); Platelet Count 379 K/mm3 (150-400); RDW Coefficient Variation 16.7 % (11.7-14.2); RDW Standard Deviation 49.5 fL (35.1-46.3); Red Blood Cell Count 4.56 M/mm3 (3.80-5.20); White Blood Cell Count 8.15 K/mm3 (4.00-11.30)
[2023-12-14 06:35] LABS: International Normalized Ratio 1.31; Prothrombin Time Results 13.5 Sec (9.7-11.5)
[2023-12-14 06:46] LABS: Albumin, Blood 2.8 g/dL (3.4-5.0); Albumin/Globulin Ratio 0.7 (0.8-1.8); Bilirubin, Total 0.6 mg/dL (0.1-1.0); Bun/Creatinine Ratio 38.6 (12.0-20.0); Calcium, Blood 8.5 mg/dL (8.5-10.1); Creatinine, Blood 0.7 mg/dL (0.40-1.00); Potassium, Blood 2.9 mmol/L (3.5-5.5); Total Protein, Blood 6.8 g/dL (6.4-8.2)
[2023-12-14 07:13] VITALS: BP 114/59
--- NOTE | 2023-12-14 09:00 | NUR ---
Pt sitting up on the side of the bed coloring, is very pleasant and cooperative with care, simple, dev delay, denies pain or n/v, states she feels good, lungs are clear t/o, resp even and unlabored, no cough noted, hrr, no edema noted, ppp+1, cap refill <3 sec, vs stable, afebrile, iv site is clear and patent, btx4, ostomy to llq, abd flat soft nontender, voids without diff, skin c/w/d, maew, up indep, kayley, call light in reach.
[2023-12-14 16:49] VITALS: BP 116/61
[2023-12-14 19:25] VITALS: BP 107/56
[2023-12-14 19:40] LABS: Bun/Creatinine Ratio 38.3 (12.0-20.0); Calcium, Blood 8.8 mg/dL (8.5-10.1); Creatinine, Blood 0.65 mg/dL (0.40-1.00); Potassium, Blood 3.6 mmol/L (3.5-5.5)
--- NOTE | 2023-12-14 19:58 | NUR ---
Pt had an uneventful day, had one episode of vomiting, but declined any medication for it as she felt fine after. no further changes this shift, call light in reach.
[2023-12-15 04:57] VITALS: BP 104/57
[2023-12-15 06:17] LABS: BASOPHILS ABSOLUTE AUTO 0.07 K/mm3 (0.00-0.23); BASOPHILS PERCENT AUTO 1 % (0-2); EOSINOPHILS ABSOLUTE AUTO 0.47 K/mm3 (0.00-0.68); EOSINOPHILS PERCENT AUTO 6 % (0-6); Hematocrit 37.1 % (33.0-51.0); Hemoglobin 11.9 g/dL (11.5-16.0); IMMATURE GRAN ABSOLUTE AUTO 0.04 K/mm3 (0.00-0.10); IMMATURE GRAN PERCENT AUTO 1 % (0-1); LYMPHOCYTES ABSOLUTE AUTO 2.74 K/mm3 (0.84-5.20); LYMPHOCYTES PERCENT AUTO 33 % (21-46); MONOCYTES ABSOLUTE AUTO 0.61 K/mm3 (0.16-1.47); MONOCYTES PERCENT AUTO 7 % (4-13); Mean Corpuscular HGB 27.1 pg (26.0-34.0); Mean Corpuscular HGB Conc 32.1 g/dL (31.5-36.5); Mean Corpuscular Volume 85 fL (80-100); NEUTROPHILS ABSOLUTE AUTO 4.51 K/mm3 (1.96-9.15); NEUTROPHILS PERCENT AUTO 53 % (41-73); Platelet Count 327 K/mm3 (150-400); RDW Coefficient Variation 16.6 % (11.7-14.2); RDW Standard Deviation 51.2 fL (35.1-46.3); Red Blood Cell Count 4.39 M/mm3 (3.80-5.20); White Blood Cell Count 8.44 K/mm3 (4.00-11.30)
[2023-12-15 06:34] LABS: International Normalized Ratio 1.4; Prothrombin Time Results 14.4 Sec (9.7-11.5)
[2023-12-15 06:49] LABS: Bun/Creatinine Ratio 43.6 (12.0-20.0); Calcium, Blood 8.4 mg/dL (8.5-10.1); Creatinine, Blood 0.57 mg/dL (0.40-1.00); Potassium, Blood 3.7 mmol/L (3.5-5.5)
[2023-12-15 07:33] VITALS: BP 106/60
--- NOTE | 2023-12-15 10:25 | NUR ---
DR HOU CAME TO SEE THE PT- TOLD THE PT SHE WAS GOING TO DC HOME TODAY. PT CALLED HER SISTER AND YELLED "COME AND GET ME! COME AND GET ME! IM GETTING OUT OF HERE!" PT HAS BEEN UP AROUND HER ROOM, SHE HAS REQUESTED TO HAVE IV'S REMOVED, IVF DC'D BY DR HOU. PT STATES HER SISTER WILL BE HERE IN 1.5 HOURS.
--- NOTE | 2023-12-15 12:42 | NUR ---
DISCHARGE NOTE- PT WAS GIVEN VERBAL AND WRITTEN DISCHARGE INSTRUCTIONS AND ACKNOWLEDGED UNDERSTANDING OF THEM. WHHEN HER [id number] ARRIVED SHE WAS ALSO PROVIDED WITH THE EDUCATION, PER HER AND THE PT REQUEST. IV'S AND TELE DC'D PRIOR TO DISCHARGE. NO S&S OF DISTRESS NOTED AT THE TIME OF DISCHARGE. PT ESCORTED OUT VIA WC BY THE CLIENT MANAGER.
== END 2023-12-15 12:50 | disposition home or self-care (01) | DRG 73 ==
LOC: ER 11:21 → MEDS 11:22
PROVIDERS: Physician Assistant; ADMIT Internal Medicine
DX: E11.43 Type 2 diabetes mellitus with diabetic autonomic (poly)neuropathy (principal); G93.41 Metabolic encephalopathy; E87.1 Hypo-osmolality and hyponatremia; I50.32 Chronic diastolic (congestive) heart failure; I13.0 Hypertensive heart and chronic kidney disease with heart failure and stage 1 through stage 4 chronic kidney disease, or unspecified chronic kidney disease; E87.3 Alkalosis; K31.84 Gastroparesis; F79 Unspecified intellectual disabilities; I35.0 Nonrheumatic aortic (valve) stenosis; E11.22 Type 2 diabetes mellitus with diabetic chronic kidney disease; E78.5 Hyperlipidemia, unspecified; E87.6 Hypokalemia; N18.31 Chronic kidney disease, stage 3a; E66.9 Obesity, unspecified; G47.33 Obstructive sleep apnea (adult) (pediatric); I87.2 Venous insufficiency (chronic) (peripheral); Z79.01 Long term (current) use of anticoagulants; Z98.890 Other specified postprocedural states; Z90.49 Acquired absence of other specified parts of digestive tract; Z90.710 Acquired absence of both cervix and uterus; Z87.19 Personal history of other diseases of the digestive system; Z88.1 Allergy status to other antibiotic agents; Z79.82 Long term (current) use of aspirin; Z79.4 Long term (current) use of insulin; Z79.84 Long term (current) use of oral hypoglycemic drugs; Z95.2 Presence of prosthetic heart valve; Z68.29 Body mass index [BMI] 29.0-29.9, adult
CPT/HCPCS: 36415; 80048; 80053; 82947; 83690; 83735; 84100; 85025; 85610; 94660; 94762; 96361; 96365; 96366; 99284; A9270; G0378; J1815; J3480; J7030

== ENCOUNTER → 2023-12-18 | Outpatient (CLI) | payer MEDICARE, OTHER ==
[2023-12-18 11:28] LABS: BASOPHILS ABSOLUTE AUTO 0.03 K/mm3 (0.00-0.23); BASOPHILS PERCENT AUTO 0 % (0-2); EOSINOPHILS ABSOLUTE AUTO 0.38 K/mm3 (0.00-0.68); EOSINOPHILS PERCENT AUTO 5 % (0-6); Hematocrit 39.5 % (33.0-51.0); Hemoglobin 12.4 g/dL (11.5-16.0); IMMATURE GRAN ABSOLUTE AUTO 0.02 K/mm3 (0.00-0.10); IMMATURE GRAN PERCENT AUTO 0 % (0-1); LYMPHOCYTES ABSOLUTE AUTO 2.34 K/mm3 (0.84-5.20); LYMPHOCYTES PERCENT AUTO 31 % (21-46); MONOCYTES ABSOLUTE AUTO 0.55 K/mm3 (0.16-1.47); MONOCYTES PERCENT AUTO 7 % (4-13); Mean Corpuscular HGB 26.4 pg (26.0-34.0); Mean Corpuscular HGB Conc 31.4 g/dL (31.5-36.5); Mean Corpuscular Volume 84 fL (80-100); Mean Platelet Volume 9.2 fL (9.1-12.4); NEUTROPHILS ABSOLUTE AUTO 4.26 K/mm3 (1.96-9.15); NEUTROPHILS PERCENT AUTO 56 % (41-73); Platelet Count 298 K/mm3 (150-400); RDW Standard Deviation 51.4 fL (35.1-46.3); Red Blood Cell Count 4.69 M/mm3 (3.80-5.20); White Blood Cell Count 7.58 K/mm3 (4.00-11.30)
[2023-12-18 11:39] LABS: Albumin/Globulin Ratio 0.7 (0.8-1.8); Bilirubin, Total 0.5 mg/dL (0.1-1.0); Bun/Creatinine Ratio 17.1 (12.0-20.0); Calcium, Blood 8.8 mg/dL (8.5-10.1); Creatinine, Blood 1.05 mg/dL (0.40-1.00); Globulin, Blood 4.1 g/dL (2.2-4.0); Magnesium, Blood 1.8 mg/dL (1.6-2.4); Potassium, Blood 3.2 mmol/L (3.5-5.5); Total Protein, Blood 7.1 g/dL (6.4-8.2)
== END | disposition home or self-care (01) ==
LOC: LAB 11:22 → LAB SHORT 11:22
PROVIDERS: Physician Assistant
DX: R11.2 Nausea with vomiting, unspecified (principal)
CPT/HCPCS: 80053; 83690; 83735; 85025

== ENCOUNTER 2023-12-20 12:43 | Observation (INO) | payer MEDICARE, OTHER ==
[~2023-12-20] VITALS: Ht 152.4 cm; Wt 65.9 kg
[~2023-12-20 12:43] MED LIST changes: -ACET325 PO; -METO25ER PO; -WARF3 PO
[2023-12-20 14:11] VITALS: BP 112/65
[2023-12-20 15:14] LABS: Albumin/Globulin Ratio 0.8 (0.8-1.8); Bilirubin, Total 0.5 mg/dL (0.1-1.0); Bun/Creatinine Ratio 21.5 (12.0-20.0); Calcium, Blood 8.7 mg/dL (8.5-10.1); Creatinine, Blood 0.98 mg/dL (0.40-1.00); Globulin, Blood 3.7 g/dL (2.2-4.0); Magnesium, Blood 2.2 mg/dL (1.6-2.4); Phosphorus, Blood 2.8 mg/dL (2.5-4.9); Potassium, Blood 2.7 mmol/L (3.5-5.5); Total Protein, Blood 6.7 g/dL (6.4-8.2)
[2023-12-20] MEDS ORDERED: FLU VACC QS2023-24(6MOS UP)/PF 60 MCG/0.5 ML SYRINGE IM SCH (15:35)
[2023-12-20] MEDS ORDERED: Lactated Ringer's 1,000 ML IV SCH (15:35)
[2023-12-20] MEDS ORDERED: Acetaminophen 325 MG TABLET PO PRN (15:35)
[2023-12-20] MEDS ORDERED: Ondansetron HCl 2 MG / ML 2ML Vial IV PRN ×2 (15:35)
[2023-12-20] MEDS ORDERED: Metoclopramide HCl 5MG / ML 2ML Vial IV PRN (15:35)
[2023-12-20] MEDS ORDERED: Potassium Chloride 40 MEQ in NS 250 ML IV STA (15:54)
[2023-12-20] MEDS ORDERED: Insulin Human Lispro 100 Units/ML 3ML Syringe SC SCH (16:30)
[2023-12-20 16:58] LABS: International Normalized Ratio 2.9; Prothrombin Time Results 28.7 Sec (9.7-11.5)
[2023-12-20] MEDS ORDERED: Warfarin Sodium 5 MG Tab PO SCH ×2 (18:00)
--- NOTE | 2023-12-20 18:36 | NUR ---
SHIFT SUMMARY: DIRECT ADMIT ARRIVED AROUND 1400; AMBULATING WITH HER SISTER IN LAW CRISTOPHER WHO IS ALSO HER POA. SHE WAS JUST HERE ON 12/15/23 FOR THE [facility]. SHE IS ALERT AND ORIENTED X3-4 DOES NOT KNOW THE NAME OF THE HOSPITAL; SHE KNOWS SELF, PERSON, DATE, AND THAT SHE IS AT THE HOSPITAL. SHE IS INDEPENDENT USES THE CALL LIGHT; MAKES NEEDS KNOWN. SHE IS GETTING IV POTASSIUM AND LR. TOLERATING WELL. SHE TOLERATED CLEAR LIQUIDS WELL AND ADVANCED TO FULL LIQUID AND TOLERATED THAT WELL. NO N/V. SHE IS SITTING AT BEDSIDE, LIKES TO COLOR, CALL LIGHT WITHIN REACH, NO SIGNS OR SYMPTOMS OF DISTRESS, PLAN OF CARE ONGOING.
[2023-12-20 19:57] VITALS: BP 99/61
[2023-12-20] MEDS ORDERED: Potassium Chl 20MEQ/Water100ML 100 ML IV ONE (20:00)
[2023-12-20 20:17] LABS: Bun/Creatinine Ratio 22.6 (12.0-20.0); Calcium, Blood 8.6 mg/dL (8.5-10.1); Creatinine, Blood 0.88 mg/dL (0.40-1.00); Potassium, Blood 2.7 mmol/L (3.5-5.5)
[2023-12-20] MEDS ORDERED: Famotidine 10 MG/ML 2ML Vial IV SCH (21:00)
[2023-12-20] MEDS ORDERED: Metoprolol Tartrate 25 MG Tab PO SCH (21:00)
--- NOTE | 2023-12-21 04:08 | NUR ---
Shift Summary Patient is 63 year old female who was admitted with hypokalemia.She was having nausea and vomiting prior to admission. She has not had any nausea or vomiting on this shift. She is alert and oriented and independently ambulatory. She has a colostomy bag with brown liquid stool noted in the bag. She is on Tele in a sinus rhythm at 73. She has LR infusing at 100ml/hr.
[2023-12-21 04:39] VITALS: BP 98/57
[2023-12-21 05:02] LABS: BASOPHILS ABSOLUTE AUTO 0.07 K/mm3 (0.00-0.23); BASOPHILS PERCENT AUTO 1 % (0-2); EOSINOPHILS ABSOLUTE AUTO 0.53 K/mm3 (0.00-0.68); EOSINOPHILS PERCENT AUTO 6 % (0-6); Hematocrit 40.4 % (33.0-51.0); Hemoglobin 12.6 g/dL (11.5-16.0); IMMATURE GRAN ABSOLUTE AUTO 0.04 K/mm3 (0.00-0.10); IMMATURE GRAN PERCENT AUTO 0 % (0-1); LYMPHOCYTES ABSOLUTE AUTO 3.49 K/mm3 (0.84-5.20); LYMPHOCYTES PERCENT AUTO 36 % (21-46); MONOCYTES ABSOLUTE AUTO 0.88 K/mm3 (0.16-1.47); MONOCYTES PERCENT AUTO 9 % (4-13); Mean Corpuscular HGB 26.2 pg (26.0-34.0); Mean Corpuscular HGB Conc 31.2 g/dL (31.5-36.5); Mean Corpuscular Volume 84 fL (80-100); Mean Platelet Volume 10.1 fL (9.1-12.4); NEUTROPHILS ABSOLUTE AUTO 4.69 K/mm3 (1.96-9.15); NEUTROPHILS PERCENT AUTO 48 % (41-73); Platelet Count 260 K/mm3 (150-400); RDW Coefficient Variation 16.4 % (11.7-14.2); Red Blood Cell Count 4.81 M/mm3 (3.80-5.20)
[2023-12-21 05:15] LABS: International Normalized Ratio 3.33; Prothrombin Time Results 32.7 Sec (9.7-11.5)
[2023-12-21 05:47] LABS: Bun/Creatinine Ratio 19.6 (12.0-20.0); Calcium, Blood 8.9 mg/dL (8.5-10.1); Creatinine, Blood 0.72 mg/dL (0.40-1.00); Potassium, Blood 3.4 mmol/L (3.5-5.5)
[2023-12-21 07:39] VITALS: BP 102/65
[2023-12-21] MEDS ORDERED: Empagliflozin 10 MG TAB PO SCH (09:00)
[2023-12-21] MEDS ORDERED: Enoxaparin 40 MG/0.4 ML SYR SC SCH (09:00)
[2023-12-21] MEDS ORDERED: Aspirin 81 MG TabEC PO SCH (09:00)
[2023-12-21] MEDS ORDERED: Atorvastatin 40 MG Tab PO SCH (09:00)
[2023-12-21] MEDS ORDERED: Metoclopramide HCl 5MG / ML 2ML Vial IV PRN (11:35)
[2023-12-21] MEDS ORDERED: Lactated Ringer's 1,000 ML IV SCH (11:35)
[2023-12-21 16:53] VITALS: BP 131/60
[2023-12-21] MEDS ORDERED: Warfarin Sodium 5 MG Tab PO SCH (18:00)
--- NOTE | 2023-12-21 19:13 | NUR ---
SHIFT SUMMARY: NO ACUTE EVENTS. COLOSTOMY DRAINED, HAVING LOTS OF GAS. NO EVENTS ON TELE, SR 70-80'S. LR INFUSING AT 75/HR. DENIED PAIN. GOOD APPETITE, NO EMESIS TODAY. PLAN IS FOR PT TO D/C HOME TOMORROW, BUT HER SISTER MAY NOT BE ABLE TO PICK HER UP IF SHE IS IN [place], SO PATIENT MAY NEED RIDE. HER PHYSICAL ADDRESS IS [address] [facility], [place].
[2023-12-21 20:00] VITALS: BP 117/62
[2023-12-22 04:15] VITALS: BP 100/57
--- NOTE | 2023-12-22 04:29 | NUR ---
SHIFT SUMMARY; PATIENT PULLS REPEATEDLY AT IV IN LEFT AC. REMINDED OFTEN TO BE CAREFUL OF IV. PAITENT WEARS CPAP DURING NOC SHIFT. HER VITAL SIGNS SHOW SOFT B/P WITH SLIGHTLY LOW DIASTOLIC. PAITENT IS NOT SYMPTOMATIC. NO ACUTE CHANGES IN CONDITION NOTED DURING NOC SHIFT.
[2023-12-22 05:29] LABS: Prothrombin Time Results 40.8 Sec (9.7-11.5)
[2023-12-22 05:39] LABS: International Normalized Ratio 4.22
[2023-12-22 05:54] LABS: Bun/Creatinine Ratio 18.9 (12.0-20.0); Calcium, Blood 8.9 mg/dL (8.5-10.1); Creatinine, Blood 0.63 mg/dL (0.40-1.00); Potassium, Blood 3.8 mmol/L (3.5-5.5)
[2023-12-22 07:36] VITALS: BP 103/54
[2023-12-22] MEDS ORDERED: Potassium Chloride 10 Meq Tablet SA PO SCH (09:00)
[2023-12-22] MEDS ORDERED: METO25ER PO (09:59)
[2023-12-22] MEDS ORDERED: WARF3 PO (10:00)
[2023-12-22] MEDS ORDERED: ACET325 PO (10:00)
== END 2023-12-22 11:35 | disposition home or self-care (01) ==
LOC: MEDS 12:43 → ENPENDDIS 12-22 09:14 → MEDS 12-22 11:35
PROVIDERS: ADMIT Hospitalist
DX: E11.43 Type 2 diabetes mellitus with diabetic autonomic (poly)neuropathy (principal); K31.84 Gastroparesis; E87.3 Alkalosis; E78.5 Hyperlipidemia, unspecified; E11.22 Type 2 diabetes mellitus with diabetic chronic kidney disease; I13.0 Hypertensive heart and chronic kidney disease with heart failure and stage 1 through stage 4 chronic kidney disease, or unspecified chronic kidney disease; N18.31 Chronic kidney disease, stage 3a; I50.30 Unspecified diastolic (congestive) heart failure; F79 Unspecified intellectual disabilities; Z88.1 Allergy status to other antibiotic agents; Z79.899 Other long term (current) drug therapy; Z79.84 Long term (current) use of oral hypoglycemic drugs; Z79.4 Long term (current) use of insulin; Z93.3 Colostomy status; Z79.01 Long term (current) use of anticoagulants
CPT/HCPCS: 36415; 80048; 80053; 82947; 83735; 84100; 85025; 85610; A9270; J3480; J7050; J7120

== ENCOUNTER → 2023-12-20 | Outpatient (CLI) | payer MEDICARE, OTHER ==
[~2023-12-20] MED LIST changes: +ACET325 PO; +METO25ER PO; +WARF3 PO
[2023-12-20 10:58] LABS: BASOPHILS ABSOLUTE AUTO 0.04 K/mm3 (0.00-0.23); BASOPHILS PERCENT AUTO 1 % (0-2); EOSINOPHILS ABSOLUTE AUTO 0.26 K/mm3 (0.00-0.68); EOSINOPHILS PERCENT AUTO 3 % (0-6); Hematocrit 43.4 % (33.0-51.0); Hemoglobin 13.7 g/dL (11.5-16.0); IMMATURE GRAN ABSOLUTE AUTO 0.01 K/mm3 (0.00-0.10); IMMATURE GRAN PERCENT AUTO 0 % (0-1); LYMPHOCYTES ABSOLUTE AUTO 2.17 K/mm3 (0.84-5.20); LYMPHOCYTES PERCENT AUTO 26 % (21-46); MONOCYTES ABSOLUTE AUTO 0.62 K/mm3 (0.16-1.47); MONOCYTES PERCENT AUTO 7 % (4-13); Mean Corpuscular HGB 26.8 pg (26.0-34.0); Mean Corpuscular HGB Conc 31.6 g/dL (31.5-36.5); Mean Corpuscular Volume 85 fL (80-100); Mean Platelet Volume 9.4 fL (9.1-12.4); NEUTROPHILS ABSOLUTE AUTO 5.31 K/mm3 (1.96-9.15); NEUTROPHILS PERCENT AUTO 63 % (41-73); Platelet Count 302 K/mm3 (150-400); RDW Coefficient Variation 16.9 % (11.7-14.2); Red Blood Cell Count 5.12 M/mm3 (3.80-5.20); White Blood Cell Count 8.41 K/mm3 (4.00-11.30)
[2023-12-20 11:04] LABS: Blood Urea Nitrogen 22 mg/dL (8-24); Bun/Creatinine Ratio 16.8 (12.0-20.0); Calcium, Blood 9.5 mg/dL (8.5-10.1); Chloride, Blood 89 mmol/L (98-108); Creatinine, Blood 1.31 mg/dL (0.40-1.00); Glomerular Filtration Rate 46 (60-); Glucose, Blood 191 mg/dL (70-99); Potassium, Blood 2.8 mmol/L (3.5-5.5); Sodium, Blood 137 mmol/L (136-145)
[2023-12-20 11:07] LABS: Anion Gap Unable to Calculate mmol/L (6-16); CO2, Blood >45 mmol/L (21-32)
== END ==
LOC: LAB 10:54 → LAB SHORT 10:54
PROVIDERS: Physician Assistant
DX: R11.10 Vomiting, unspecified (principal)
CPT/HCPCS: 80048; 85025

== ENCOUNTER 2023-12-24 13:13 | Observation (INO) | payer MEDICARE, OTHER ==
[~2023-12-24] VITALS: Ht 154.9 cm; Wt 65.3 kg
[~2023-12-24 13:13] MED LIST changes: +ACET325 PO; +METO25ER PO; +WARF3 PO
[2023-12-24 14:08] LABS: BASOPHILS ABSOLUTE AUTO 0.04 K/mm3 (0.00-0.23); BASOPHILS PERCENT AUTO 1 % (0-2); EOSINOPHILS ABSOLUTE AUTO 0.07 K/mm3 (0.00-0.68); EOSINOPHILS PERCENT AUTO 1 % (0-6); Hematocrit 40.7 % (33.0-51.0); IMMATURE GRAN ABSOLUTE AUTO 0.02 K/mm3 (0.00-0.10); IMMATURE GRAN PERCENT AUTO 0 % (0-1); LYMPHOCYTES ABSOLUTE AUTO 2.26 K/mm3 (0.84-5.20); LYMPHOCYTES PERCENT AUTO 28 % (21-46); MONOCYTES ABSOLUTE AUTO 0.68 K/mm3 (0.16-1.47); MONOCYTES PERCENT AUTO 8 % (4-13); Mean Corpuscular HGB 26.4 pg (26.0-34.0); Mean Corpuscular HGB Conc 31.9 g/dL (31.5-36.5); Mean Corpuscular Volume 83 fL (80-100); Mean Platelet Volume 9.3 fL (9.1-12.4); NEUTROPHILS ABSOLUTE AUTO 5.03 K/mm3 (1.96-9.15); NEUTROPHILS PERCENT AUTO 62 % (41-73); Platelet Count 281 K/mm3 (150-400); RDW Coefficient Variation 16.8 % (11.7-14.2); RDW Standard Deviation 50.3 fL (35.1-46.3); Red Blood Cell Count 4.93 M/mm3 (3.80-5.20)
[2023-12-24 14:32] LABS: Magnesium, Blood 2.3 mg/dL (1.6-2.4)
[2023-12-24 15:02] LABS: Alanine Aminotransfer (ALT/SGP 29 U/L (12-78); Albumin, Blood 3.7 g/dL (3.4-5.0); Albumin/Globulin Ratio 0.9 (0.8-1.8); Alk Phos 52 U/L (50-136); Anion Gap Unable to Calculate mmol/L (6-16); Aspartate Aminotrans (AST/SGOT 43 U/L (12-37); Bilirubin, Total 0.9 mg/dL (0.1-1.0); Blood Urea Nitrogen 25 mg/dL (8-24); Bun/Creatinine Ratio 23.4 (12.0-20.0); Calcium, Blood 9.9 mg/dL (8.5-10.1); Chloride, Blood 78 mmol/L (98-108); Creatinine, Blood 1.07 mg/dL (0.40-1.00); Globulin, Blood 4.3 g/dL (2.2-4.0); Glomerular Filtration Rate 58 (60-); Glucose, Blood 132 mg/dL (70-99); Potassium, Blood 2.8 mmol/L (3.5-5.5); Sodium, Blood 132 mmol/L (136-145)
[2023-12-24 15:03] LABS: CO2, Blood >45 mmol/L (21-32)
[2023-12-24] MEDS ORDERED: NS 1,000 ML IV SCH ×3 (16:45→22:00)
[2023-12-24] MEDS ORDERED: Potassium Chl 20MEQ/Water100ML 100 ML IV ONE (16:45)
[2023-12-24] MEDS ORDERED: Potassium Chloride 20 MEQ/15 ML UDC PO ONE (16:45)
[2023-12-24] MEDS ORDERED: Metoclopramide HCl 5MG / ML 2ML Vial IV ONE (16:45)
[2023-12-24] MEDS ORDERED: FLU VACC QS2023-24(6MOS UP)/PF 60 MCG/0.5 ML SYRINGE IM SCH (21:45)
[2023-12-24] MEDS ORDERED: Ondansetron 4 MG TAB PO PRN (21:50)
[2023-12-24] MEDS ORDERED: NS 1,000 ML IV ONE (22:00)
[2023-12-24] MEDS ORDERED: Metoclopramide HCl 10 MG Tab PO PRN (22:15)
[2023-12-24 23:34] VITALS: BP 94/61
[2023-12-25] VITALS (13 sets, daily range): BP systolic 86–120; BP diastolic 47–65
[2023-12-25] MEDS ORDERED: Ondansetron 4 MG TAB PO PRN (00:30)
[2023-12-25] MEDS ORDERED: Acetaminophen 325 MG TABLET PO PRN (00:30)
--- NOTE | 2023-12-25 00:41 | NUR ---
TRANSFER NOTE THIS RN RECEIVED REPORT FROM GERARD CORREA IN THE ED. PT TRANSFERRED TO PCU AT 2330. PT AMBULATED FROM RNEY TO BED. DENIED DIZZINESS. SBP 90'S. SR ON MONITOR. PT A&O. HX DEVELOPMENTAL DELAY; PT APPROPRIATELY ANSWERING QUESTIONS. HX OBTAINED FROM ADMISSION HX DONE AT RECENT ADMISSION LAST WEEK. NS INFUSING PER EMAR. OSTOMY IN LLQ; SOFT BROWN OUTPUT NOTED. ORDER FOR CPAP OBTAINED, PT USES CPAP AT HOME FOR NOC. BED ALARM ON FOR SAFETY. BED IN LOWEST POSITION AND CALL LIGHT WITHIN REACH.
[2023-12-25] MEDS ORDERED: Midodrine 2.5 MG Tab PO SCH ×2 (02:50→09:00)
--- NOTE | 2023-12-25 02:55 | NUR ---
PATIENT UPDATE CALL PLACED TO MD PHAM REGARDING CONTINUED HYPOTENSION. MAP 60-62, WITH SBP 80-90'S. PT DENIES S/S OF HYPOTENSION. MD WITH ORDER FOR TID MIDODRINE, TO BE STARTED NOW. NO OTHER CHANGES NOT AT THIS TIME.
[2023-12-25 04:04] LABS: BASOPHILS ABSOLUTE AUTO 0.05 K/mm3 (0.00-0.23); BASOPHILS PERCENT AUTO 1 % (0-2); EOSINOPHILS ABSOLUTE AUTO 0.34 K/mm3 (0.00-0.68); EOSINOPHILS PERCENT AUTO 5 % (0-6); Hematocrit 31.4 % (33.0-51.0); IMMATURE GRAN ABSOLUTE AUTO 0.02 K/mm3 (0.00-0.10); IMMATURE GRAN PERCENT AUTO 0 % (0-1); LYMPHOCYTES ABSOLUTE AUTO 2.75 K/mm3 (0.84-5.20); LYMPHOCYTES PERCENT AUTO 38 % (21-46); MONOCYTES ABSOLUTE AUTO 0.51 K/mm3 (0.16-1.47); MONOCYTES PERCENT AUTO 7 % (4-13); Mean Corpuscular HGB 26.7 pg (26.0-34.0); Mean Corpuscular HGB Conc 31.8 g/dL (31.5-36.5); Mean Corpuscular Volume 84 fL (80-100); Mean Platelet Volume 9.6 fL (9.1-12.4); NEUTROPHILS ABSOLUTE AUTO 3.65 K/mm3 (1.96-9.15); NEUTROPHILS PERCENT AUTO 50 % (41-73); Platelet Count 214 K/mm3 (150-400); RDW Coefficient Variation 16.4 % (11.7-14.2); RDW Standard Deviation 50.6 fL (35.1-46.3); Red Blood Cell Count 3.75 M/mm3 (3.80-5.20); White Blood Cell Count 7.32 K/mm3 (4.00-11.30)
[2023-12-25 04:34] LABS: Albumin, Blood 2.5 g/dL (3.4-5.0); Albumin/Globulin Ratio 0.8 (0.8-1.8); Bilirubin, Total 0.7 mg/dL (0.1-1.0); Bun/Creatinine Ratio 25.2 (12.0-20.0); Calcium, Blood 7.7 mg/dL (8.5-10.1); Creatinine, Blood 0.76 mg/dL (0.40-1.00); Globulin, Blood 3.2 g/dL (2.2-4.0); Potassium, Blood 2.9 mmol/L (3.5-5.5); Total Protein, Blood 5.7 g/dL (6.4-8.2)
--- NOTE | 2023-12-25 04:34 | NUR ---
SHIFT SUMMARY SEE PREVIOUS NOTES. MAP 65 A THIS TIME. NO OTHER ACUTE CHANGES SINCE PREVIOUS NOTES. PT CALLING APPROPRIATELY. DENIES DIZZINESS, SOB, AND CP. BED IN LOWEST POSITION AND CALL LIGHT WITHIN REACH. THIS RN WILL REPOR TO ONCOMING DAYSHIFT RN.
[2023-12-25 04:42] LABS: Prothrombin Time Results 49.6 Sec (9.7-11.5)
[2023-12-25 05:02] LABS: International Normalized Ratio 5.19
[2023-12-25] MEDS ORDERED: Potassium Chloride 40 MEQ in NS 250 ML IV ONE (05:25)
[2023-12-25] MEDS ORDERED: Potassium Chloride 10 Meq Tablet SA PO ONE (05:25)
[2023-12-25] MEDS ORDERED: Insulin Human Lispro 100 Units/ML 3ML Syringe SC SCH (07:30)
[2023-12-25] MEDS ORDERED: Cosyntropin 0.25 MG / ML 1ML Vial IV ONE (08:00)
[2023-12-25] MEDS ORDERED: Aspirin 81 MG TabEC PO SCH (09:00)
[2023-12-25] MEDS ORDERED: Potassium Chloride 20 MEQ TabCR PO SCH (09:00)
[2023-12-25] MEDS ORDERED: Famotidine 20 MG Tab PO SCH (09:00)
[2023-12-25] MEDS ORDERED: Atorvastatin 40 MG Tab PO SCH (09:00)
[2023-12-25] MEDS ORDERED: Insulin Glargine-Yfgn 100 Unit/mL 3 ML SYR SC SCH (09:00)
[2023-12-25] MEDS ORDERED: Empagliflozin 10 MG TAB PO SCH (09:00)
[2023-12-25] MEDS ORDERED: Enoxaparin 40 MG/0.4 ML SYR SC SCH (09:00)
[2023-12-25] MEDS ORDERED: Arginine/Glutamine/Calcium Hmb 1 Packet PO SCH (09:00)
--- NOTE | 2023-12-25 09:34 | NUR ---
[place] of Care: Care assumed at 0700hr. Patient alert and oriented x4, VSS. Denies pain, discomfort, SOB or dyspnea. Peripheral IV x1 patent and intact. Colostomy to LLQ patent and intact, small amount of brown pasty stool in collection bag. Independent in room, ambulating without difficulty. Ate 100% of breakfast without difficulty, also tolerating PO fluids. Denies N/V. Abd soft, no pain with palpation. Call light in reach, makes needs known. Will continue to monitor.
[2023-12-25 11:20] LABS: Bun/Creatinine Ratio 21.3 (12.0-20.0); Calcium, Blood 8.2 mg/dL (8.5-10.1); Creatinine, Blood 0.85 mg/dL (0.40-1.00); Phosphorus, Blood 2.5 mg/dL (2.5-4.9); Potassium, Blood 3.5 mmol/L (3.5-5.5)
--- NOTE | 2023-12-25 11:26 | NUR ---
Upon receiving a referral for spiritual care, I visited the patient. She is pleasant and positive and talks about her Chrisitan joshua, her family (brother and sister in law) and her new home at an adult foster halfway in [place]. She tells me that her joshua in God is important to her and the source of her smile and strength. She states that she has no concerns at this time but welcomes prayer, which I gladly supplied. I provided therapeutic listening and a calming presence. Patient showed signs of signs of an elevated mood. I will continue to remain available to patient and family
--- NOTE | 2023-12-25 12:15 | NUR ---
TRANSFER TO [facility]: REPORT RECEIVED FROM CHRIS LEWIS RN. PATIENT ARRIVED TO UNIT VIA WHEELCHAIR. PATIENT ANSWERING QUESTIONS APPROPRIATELY. PATIENT ABLE TO TRANSFER INDEPENDENTLY. PATIENT DENIES DIFFICULTY BREATHING, SHORTNESS OF BREATH OR CHEST PAIN WITH ACTIVITY. PATIENT REPORTS SHE DOES NOT FEEL NAUSEATED AND IS REQUESTING A SMALL SNACK. PATIENT'S DIET HAS BEEN ADVANCED. PATIENT DENIES NEEDS AT THIS TIME.
[2023-12-25] MEDS ORDERED: Potassium Chloride 20 MEQ TabCR PO ONE (16:00)
--- NOTE | 2023-12-25 19:24 | NUR ---
SHIFT SUMMARY: PATIENT DENIED PAIN OR DISCOMFORT THROUGHOUT THE SHIFT. PATIENT ABLE TO TOLERATE ADVANCED DIET (SMALL, FREQ MEALS) WITHOUT NAUSEA OR EMESIS THIS AFTERNOON. PATIENT STEADY ON HER FEET AND DENIES DIZZINESS OR LIGHTHEADEDNESS. PATIENT CONTINUES TO HAVE LOW BLOOD PRESSURES. MIDODRINE ADMINISTERED PER ORDERS. PATIENT IS COOPERATIVE WITH CARE AND ABLE TO MAKE HER NEEDS KNOWN. PATIENT IS LOOKING FORWARD TO DISCHARGING SOON.
[2023-12-26 05:02] VITALS: BP 114/59
[2023-12-26 05:48] LABS: BASOPHILS ABSOLUTE AUTO 0.03 K/mm3 (0.00-0.23); BASOPHILS PERCENT AUTO 0 % (0-2); EOSINOPHILS PERCENT AUTO 3 % (0-6); Hematocrit 34.1 % (33.0-51.0); Hemoglobin 10.6 g/dL (11.5-16.0); IMMATURE GRAN ABSOLUTE AUTO 0.02 K/mm3 (0.00-0.10); IMMATURE GRAN PERCENT AUTO 0 % (0-1); LYMPHOCYTES ABSOLUTE AUTO 1.93 K/mm3 (0.84-5.20); LYMPHOCYTES PERCENT AUTO 21 % (21-46); MONOCYTES ABSOLUTE AUTO 0.65 K/mm3 (0.16-1.47); MONOCYTES PERCENT AUTO 7 % (4-13); Mean Corpuscular HGB 26.4 pg (26.0-34.0); Mean Corpuscular HGB Conc 31.1 g/dL (31.5-36.5); Mean Corpuscular Volume 85 fL (80-100); Mean Platelet Volume 9.4 fL (9.1-12.4); NEUTROPHILS ABSOLUTE AUTO 6.24 K/mm3 (1.96-9.15); NEUTROPHILS PERCENT AUTO 68 % (41-73); Platelet Count 232 K/mm3 (150-400); RDW Coefficient Variation 16.3 % (11.7-14.2); RDW Standard Deviation 51.2 fL (35.1-46.3); Red Blood Cell Count 4.01 M/mm3 (3.80-5.20); White Blood Cell Count 9.17 K/mm3 (4.00-11.30)
[2023-12-26 06:00] LABS: International Normalized Ratio 3.58
[2023-12-26 06:14] LABS: Albumin, Blood 2.8 g/dL (3.4-5.0); Albumin/Globulin Ratio 0.8 (0.8-1.8); Bilirubin, Total 0.5 mg/dL (0.1-1.0); Bun/Creatinine Ratio 29.7 (12.0-20.0); Calcium, Blood 8.7 mg/dL (8.5-10.1); Creatinine, Blood 0.74 mg/dL (0.40-1.00); Globulin, Blood 3.5 g/dL (2.2-4.0); Potassium, Blood 4.4 mmol/L (3.5-5.5); Total Protein, Blood 6.3 g/dL (6.4-8.2)
--- NOTE | 2023-12-26 06:25 | NUR ---
SHIFT SUMMARY NOC PT A/O X 3-4. PLEASANT AND COOPERATIVE WITH CARE. NO ACUTE CHANGES TO REPORT. PT COLOSTOMY BAG CHANGED OUT AFTER PREVIOUS BAG WAS LEAKING. PT RECEIVING INFUSION OF NS @ 125 ML/HR. PT POSSIBLE DISCHARGE BACK TO [facility] TODAY. PT IS CURRENTLY RESTING WITH BED IN LOWEST POSITION, AND CALL LIGHT WITHIN REACH.
[2023-12-26 07:25] VITALS: BP 107/58
--- NOTE | 2023-12-26 13:30 | NUR ---
PT DISCHARGED HOME WITH FAMILY AT BEDSIDE. DISCHARGE INSTRUCTIONS DISCUSSED WITH PT AND FOLDER GIVEN TO FAMILY. NO QUESTIONS OR CONCERNS. EDUCATION PROVIDED ON THE IMPORTANCE OF CHECKING BLOOD PRESSURE OFTEN. ALERT AND ORIENTED X4. DEVELOPMENTAL DELAY. FAMILY TOOK PT OUT IN WHEEL CHAIR AT THEIR REQUEST.
[2023-12-26] MEDS ORDERED: Warfarin Sodium 3 MG Tab PO SCH (18:00)
== END 2023-12-26 13:05 | disposition home or self-care (01) ==
LOC: ER 13:13 → PCU 13:14 → MEDS 13:14 → PCU 13:14 → MEDS 12-25 12:14
PROVIDERS: Family Medicine; Internal Medicine; Physician Assistant; ADMIT Internal Medicine
DX: E11.43 Type 2 diabetes mellitus with diabetic autonomic (poly)neuropathy (principal); K31.84 Gastroparesis; N17.9 Acute kidney failure, unspecified; I13.0 Hypertensive heart and chronic kidney disease with heart failure and stage 1 through stage 4 chronic kidney disease, or unspecified chronic kidney disease; I50.32 Chronic diastolic (congestive) heart failure; E11.22 Type 2 diabetes mellitus with diabetic chronic kidney disease; N18.30 Chronic kidney disease, stage 3 unspecified; E87.6 Hypokalemia; E87.3 Alkalosis; E87.1 Hypo-osmolality and hyponatremia; E78.5 Hyperlipidemia, unspecified; G47.33 Obstructive sleep apnea (adult) (pediatric); F79 Unspecified intellectual disabilities; E66.9 Obesity, unspecified; Z85.42 Personal history of malignant neoplasm of other parts of uterus; Z88.1 Allergy status to other antibiotic agents; Z79.84 Long term (current) use of oral hypoglycemic drugs; Z79.82 Long term (current) use of aspirin
CPT/HCPCS: 36415; 71045; 80048; 80053; 80400; 82533; 82947; 83735; 84100; 85025; 85610; 93005; 93010; 94660; 94762; 96361; 96365; 96366; 96375; 97112; 97116; 97161; 99285-25; A9270; G0378; J0834; J1815; J2765; J3480; J7030; J7050

== ENCOUNTER 2024-02-15 15:48 | Emergency (ER) | payer MEDICARE, OTHER ==
[~2024-02-15] VITALS: Ht 152.4 cm; Wt 61.2 kg
[~2024-02-15 15:48] MED LIST changes: +ENOX100I SC
[2024-02-15] MEDS ORDERED: SIME80CH PO (16:41)
[2024-02-15 17:22] LABS: BASOPHILS ABSOLUTE AUTO 0.03 K/mm3 (0.00-0.23); BASOPHILS PERCENT AUTO 1 % (0-2); EOSINOPHILS ABSOLUTE AUTO 0.15 K/mm3 (0.00-0.68); EOSINOPHILS PERCENT AUTO 2 % (0-6); Hematocrit 39.8 % (33.0-51.0); Hemoglobin 12.8 g/dL (11.5-16.0); IMMATURE GRAN ABSOLUTE AUTO 0.02 K/mm3 (0.00-0.10); IMMATURE GRAN PERCENT AUTO 0 % (0-1); LYMPHOCYTES ABSOLUTE AUTO 2.51 K/mm3 (0.84-5.20); LYMPHOCYTES PERCENT AUTO 39 % (21-46); MONOCYTES ABSOLUTE AUTO 0.47 K/mm3 (0.16-1.47); MONOCYTES PERCENT AUTO 7 % (4-13); Mean Corpuscular HGB 26.7 pg (26.0-34.0); Mean Corpuscular HGB Conc 32.2 g/dL (31.5-36.5); Mean Corpuscular Volume 83 fL (80-100); Mean Platelet Volume 8.6 fL (9.1-12.4); NEUTROPHILS ABSOLUTE AUTO 3.23 K/mm3 (1.96-9.15); NEUTROPHILS PERCENT AUTO 50 % (41-73); Platelet Count 267 K/mm3 (150-400); RDW Coefficient Variation 16.5 % (11.7-14.2); White Blood Cell Count 6.41 K/mm3 (4.00-11.30)
[2024-02-15 17:42] LABS: Albumin, Blood 3.8 g/dL (3.4-5.0); Albumin/Globulin Ratio 0.9 (0.8-1.8); Bilirubin, Total 0.4 mg/dL (0.1-1.0); Bun/Creatinine Ratio 35.4 (12.0-20.0); Calcium, Blood 9.3 mg/dL (8.5-10.1); Creatinine, Blood 0.51 mg/dL (0.40-1.00); Globulin, Blood 4.1 g/dL (2.2-4.0); Potassium, Blood 3.6 mmol/L (3.5-5.5); Total Protein, Blood 7.9 g/dL (6.4-8.2)
[2024-02-15 19:00] VITALS: BP 105/67
== END 2024-02-15 19:42 | disposition home or self-care (01) ==
LOC: ER 15:48
PROVIDERS: Physician Assistant
DX: K31.89 Other diseases of stomach and duodenum (principal); Z88.8 Allergy status to other drugs, medicaments and biological substances; Z79.899 Other long term (current) drug therapy; Z79.82 Long term (current) use of aspirin; Z79.01 Long term (current) use of anticoagulants; Z79.84 Long term (current) use of oral hypoglycemic drugs; Z79.4 Long term (current) use of insulin; E11.9 Type 2 diabetes mellitus without complications; I10 Essential (primary) hypertension; E78.00 Pure hypercholesterolemia, unspecified
CPT/HCPCS: 74018; 74177; 80053; 83605; 85025; 99284-25; Q9967

== ENCOUNTER → 2024-02-19 | Outpatient (CLI) | payer MEDICARE, OTHER ==
[~2024-02-19] MED LIST changes: +SIME80CH PO
[2024-02-20 11:52] LABS: C DIFFICILE DNA NEGATIVE (Negative)
== END | disposition home or self-care (01) ==
LOC: LAB SHORT 12:39
PROVIDERS: Physician Assistant
DX: R19.5 Other fecal abnormalities (principal)
CPT/HCPCS: 87493